=== PATIENT | female | born 1975 | race Caucasian/White ===

== ENCOUNTER 2017-01-31 12:18 | Emergency (ER) | payer MEDICAID, SELFPAY | END 2017-01-31 14:28 | disposition home or self-care (01) | PROVIDERS: Emergency Provider Emergency Medicine; Family Provider Emergency Medicine; Visit Provider Emergency Medicine | DX: A08.4 Viral intestinal infection, unspecified (principal); F17.210 Nicotine dependence, cigarettes, uncomplicated; I10 Essential (primary) hypertension; F32.9 Major depressive disorder, single episode, unspecified; Z79.899 Other long term (current) drug therapy | CPT/HCPCS: 80053; 81001; 82150; 83690; 85025; 87070; 87275; 87276; 87430; 96365; 96375; 99284; J2405 ==

== ENCOUNTER 2017-04-27 19:36 | Emergency (ER) | payer MEDICAID, SELFPAY ==
[2017-04-27 19:40] VITALS: BP 167/80; PULSE 100; RESP 20; TEMP 36.7; O2SAT 96; BMI 51.8
--- NOTE | 2017-04-27 19:53 | CT_ITS ---
CT abdomen pelvis wo con Ordering Physician: Shadia De Santiago MD Patient Age: 41 years: Female HISTORY: ITS.REASON: abdominal pain TECHNIQUE: Helical CT scanning through abdomen pelvis with no oral nor IV contrast utilized. Sagittal coronal and axial reconstructions on CT workstation. COMPARISON :Previous CT abdomen pelvis 12/06/2015 FINDINGS Large patientImag. Large size somewhat degraded due to such. Lung bases clear with nothing definitely acute. Abdomen pelvis: lack of oral and IV contrast decreases sensitivity Liver. Fatty changes. Elongated right lobe measuring 22.5 cm length. Similar to slightly more generous than previous CT Spleen normal size. Granular with calcification. Pancreas unremarkable. Clips gallbladder fossa from previous cholecystectomy. . Left adrenal nodule, and stable. It measures 3.3 cm diameter with. No significant change in size and appearance since studies dating back to 2014. Its low density character instability most compatible with benign nonfunctioning adenoma. It It resided just inferior to the tail the pancreas and just anterior to the top of left kidney. Right adrenal unremarkable. Kidneys. No urinary tract calculi nor obstruction GI tract: No bowel dilatation or obstruction. Moderate stool the right colon and transverse colon with minimal stool descending colon. Appendix is identified and appears normal. Contains gas. It appears unchanged as prior studies. Pelvis Hysterectomy. No adnexal masses. Postsurgical changes pelvis. Urinary bladder unremarkable. No free fluid pelvi. A tiny stable umbilical hernia. Retroperitoneal nor mesenteric nor pelvic adenopathy. Moderate food distended stomach no bowel dilatation or obstruction Osseous structures. No lesions no significant new findings. Degenerative disc space L5/S1. Facet hypertrophy throughout the lower L-spine most evident at L5/L1 L4/5. IMPRESSION: =[ No acute findings abdomen pelvis Regarding right-sided pain: Appendix appears normal. No urinary tract calculi nor obstruction Liver appears mildly enlarged with elongated right lobe measuring up to 22.5 cm length. Perhaps incrementally longer than previous studies. Suggest correlation with LFTs. Diffuse fatty changes. Cholecystectomy. Stable left adrenal nodule measuring up to 3.3 cm. Cm Large patient. Size slightly degrades images but adequate diagnostic study
[2017-04-27 20:05] LABS: Microscopic, Urine URINE MICROSCOPIC (MICROSCOPIC)
[2017-04-27 20:06] LABS: Basophils % 0.4 % (0.1-2.0); Eosinophils # 0.3 K/mm3 (0.0-0.4); Eosinophils % 2.8 % (0.1-12.0); Hematocrit 45.4 % (37.0-47.0); Hemoglobin 14.2 g/dL (12.2-16.2); Lymphocytes # 3.5 K/mm3 (0.7-4.5); Lymphocytes % 32.2 K/mm3 (10-50); Mean Corpuscular HGB Conc 31.4 g/dL (31.8-35.4); Mean Corpuscular Hemoglobin 30.7 pg (27.0-31.2); Mean Corpuscular Volume 97.8 fl (81-99); Mean Platelet Volume 7.5 fl (7.4-10.4); Monocytes # 0.6 K/mm3 (0.1-1.0); Monocytes % 5.5 % (1.7-9.3); Neutrophils # 6.5 K/mm3 (1.8-7.8); Neutrophils % 59.1 % (37.0-80.0); Platelet Count 302 K/mm3 (142-424); Red Blood Count 4.64 M/mm3 (4.20-5.40); Red Cell Distribution Width 13.4 % (11.5-17.5)
[2017-04-27 20:08] LABS: Appearance,Urine CLOUDY (Clear); Bilirubin,Urine Negative (Negative); Blood, Urine Negative (Negative); Color,Urine YELLOW (Yellow); Glucose,Urine (UA) Negative (Negative); Ketones,Urine Negative (Negative); Leukocyte Esterase,Urine Negative (Negative); Nitrate,Urine Negative (Negative); PH,Urine 6.5 (5.0-8.5); Protein,Urine Negative (Negative); Specific Gravity, Urine 1.015 (1.005-1.030); Urobilinogen,Urine 0.2 EU/dl (0.2)
[2017-04-27 20:13] LABS: Amorphous Sediment,Urine 1+ /lpf
[2017-04-27 20:18] LABS: Alanine Aminotransferase 127 U/L (12-78); Albumin/Globulin Ratio 0.6 (1.1-1.8); Alkaline Phosphatase 119 U/L (46-116); Amylase 56 U/L (25-125); Anion Gap 8.1 mEq/L (5-15); Aspartate Amino Transferase 127 U/L (15-37); Bilirubin,Total 0.2 mg/dL (0.2-1.0); Blood Urea Nitrogen 9 mg/dL (7-18); Calcium 8.9 mg/dL (8.5-10.1); Carbon Dioxide 29 mmol/L (21.0-32.0); Chloride 102 mmol/L (98-107); Creatinine Clearance Estimated 76 mL/min (0-300); Creatinine,Serum 0.83 mg/dL (0.55-1.02); Estimated Glomerular Filt Rate 75 ml/min (>60); GFR (African American) 91 ML/MIN (>60); Globulin 4.8 gm/dl (1.3-3.2); Glucose 140 mg/dL (74-106); Lipase 424 u/L (73-393); Potassium 4.1 mmoL/L (3.5-5.1); Sodium 135 mmol/L (136-145); Total Protein,Serum 7.8 gm/dL (6.4-8.2)
--- NOTE | 2017-04-27 20:38 | HMH.EDUROGF ---
ED Disposition Clinical Impression: Abdominal pain Qualifiers: Abdominal location: right lower quadrant Qualified Code(s): R10.31 - Right lower quadrant pain Disposition: Home, Self-Care Condition on Discharge: Good Instructions: DI for Acute Abdomen Additional Instructions: see pcp saturday Referrals: Isis Jacques PA [Primary Care Provider] - - Critical Care Critical Care Time: No Attestation: On 04/27/17, the high probability of a clinically significant, sudden or life threatening deterioration of the following system(s) required my full and direct attention, intervention and personal management. The time I documented below is in addition to time spent performing reported procedures but includes the following listed in this critical care notation. Medical Decision Making - Medical Records Medical records reviewed: Yes: I reviewed the patient's medical records. Vital Signs: 04/27/17 19:40 Temperature 98.1 F Temperature Source Oral Pulse Rate [Right Radial] 100 H Respiratory Rate 20 Blood Pressure [Right Arm] 167/80 Blood Pressure Mean [Right Arm] 109 Blood Pressure Source [Right Arm] Automatic Cuff Blood Pressure Position [Right Arm] Sitting 02 Sat by Pulse Oximetry 96 Oxygen Delivery Method Room Air - Lab Data Lab results reviewed: Yes: I reviewed the patient's lab results. Lab Results 04/27/17 20:00: Urine Color Yellow, Urine Appearance Cloudy, Urine pH 6.5, Ur Specific [place] 1.015, Urine Protein Negative, Urine Glucose (UA) Negative, Urine Ketones Negative, Urine Blood Negative, Urine Nitrate Negative, Urine Bilirubin Negative, Urine Urobilinogen 0.2, Ur Leukocyte Esterase Negative, Ur Squamous Epith Cells 10-20, Amorphous Sediment 1+ 04/27/17 20:00: WBC 11.0 H, RBC 4.64, Hgb 14.2, Hct 45.4, MCV 97.8, MCH 30.7, MCHC 31.4 L, RDW 13.4, Plt Count 302, MPV 7.5, Neut % (Auto) 59.1, Lymph % (Auto) 32.2, Barron % (Auto) 5.5, Eos % (Auto) 2.8, Baso % (Auto) 0.4, Neut # (Auto) 6.5, Lymph # (Auto) 3.5, Barron # (Auto) 0.6, Eos # (Auto) 0.3, Baso # (Auto) 0.0 04/27/17 20:00: Sodium 135 L, Potassium 4.1, Chloride 102, Carbon Dioxide 29, Anion Gap 8.1, BUN 9, Creatinine 0.83, Estimated Creat Clear 76, Estimated GFR 75, Est GFR ( Amer) 91, Glucose 140 H, Calcium 8.9, Total Bilirubin 0.2, AST 127 H, ALT 127 H, Alkaline Phosphatase 119 H, Total Protein 7.8, Albumin 3.0 L, Globulin 4.8 H, Albumin/Globulin Ratio 0.6 L, Amylase 56, Lipase 424 H Result diagrams: 04/27/17 20:00 04/27/17 20:00 Orders (Tests/Meds): ED MEDICATIONS Discontinued Medications Generic Name Dose Route Start Last Admin Trade Name Freq PRN Reason Stop Dose Admin Ketorolac Tromethamine 30 mg 04/27/17 20:34 04/27/17 20:39 Toradol 30mg/Ml Vial IV 04/27/17 20:35 30 mg ONCE ONE Administration Ondansetron HCl 4 mg 04/27/17 20:38 04/27/17 20:39 Zofran 4mg/2ml Vial IV 04/27/17 20:39 4 mg ONCE ONE Administration - CT Data CT Scan: Abdomen, Pelvis Time Received: 20:[address] Reviewed: Yes: I have viewed the radiologist's interpretation Preliminary Findings: Normal/NAD - Red Inquiry Pt receiving controlled substance: No Female Urogenital HPI - General Chief complaint: Abdominal Pain Stated complaint: R side pain Time Seen by Provider: 04/27/17 20:38 Mode of Arrival: Ambulatory Source of Information: Patient, Significant Other Limitations: No Limitations Description of Symptoms (Recalled from ER Triage Doc. by RN): Pt reports RLQ/flank pain that radiates into the back - History of Present Illness HPI Narrative: acute onset of rt flank pain with no fever or rash and no trauma Onset (ago): hour(s) Radiation: R flank Severity: moderate Quality: sharp Duration: intermittent : no - Related Data Home Medications Medication Instructions Recorded Confirmed cholecalciferol (vitamin D3) 50,000 unit PO QWEEK 02/21/17 04/27/17 50,000 unit capsule cyclobenzaprine 10 mg ta
[2017-04-27 21:29] VITALS: BP 150/93; PULSE 77; RESP 20; TEMP 36.9; O2SAT 97
== END 2017-04-27 21:25 | disposition home or self-care (01) ==
PROVIDERS: Emergency Provider Emergency Medicine; Family Provider Physician Assistant; PCP Physician Assistant
DX: R10.31 Right lower quadrant pain (principal); K21.9 Gastro-esophageal reflux disease without esophagitis; I10 Essential (primary) hypertension; F41.8 Other specified anxiety disorders; M51.36 Other intervertebral disc degeneration, lumbar region; Z90.49 Acquired absence of other specified parts of digestive tract
CPT/HCPCS: 74176; 80053; 81001; 82150; 83690; 85025; 96374; 96375; 99283; J0595; J2405

== ENCOUNTER → 2017-04-29 13:40 | Outpatient (REF) | payer MEDICAID, SELFPAY ==
[2017-04-29 18:26] LABS: Basophils % 0.5 % (0.1-2.0); Eosinophils # 0.3 K/mm3 (0.0-0.4); Eosinophils % 3.7 % (0.1-12.0); Hematocrit 47.8 % (37.0-47.0); Hemoglobin 14.9 g/dL (12.2-16.2); Lymphocytes # 2.3 K/mm3 (0.7-4.5); Lymphocytes % 33.5 K/mm3 (10-50); Mean Corpuscular HGB Conc 31.1 g/dL (31.8-35.4); Mean Corpuscular Hemoglobin 30.7 pg (27.0-31.2); Mean Corpuscular Volume 98.8 fl (81-99); Mean Platelet Volume 8.2 fl (7.4-10.4); Monocytes # 0.3 K/mm3 (0.1-1.0); Monocytes % 4.4 % (1.7-9.3); Neutrophils % 57.8 % (37.0-80.0); Platelet Count 301 K/mm3 (142-424); Red Blood Count 4.84 M/mm3 (4.20-5.40); Red Cell Distribution Width 13.5 % (11.5-17.5)
[2017-04-29 19:39] LABS: Alanine Aminotransferase 132 U/L (12-78); Albumin Level 3.2 gm/dL (3.4-5.0); Albumin/Globulin Ratio 0.7 (1.1-1.8); Alkaline Phosphatase 103 U/L (46-116); Amylase 46 U/L (25-125); Anion Gap 14.4 mEq/L (5-15); Aspartate Amino Transferase 114 U/L (15-37); Bilirubin,Total 0.3 mg/dL (0.2-1.0); Blood Urea Nitrogen 9 mg/dL (7-18); Calcium 9.2 mg/dL (8.5-10.1); Carbon Dioxide 27 mmol/L (21.0-32.0); Chloride 102 mmol/L (98-107); Chol/HDL Ratio 4.5 (1-3.5); Cholesterol 186 mg/dL (140-200); Creatinine,Serum 0.83 mg/dL (0.55-1.02); Estimated Glomerular Filt Rate 75 ml/min (>60); GFR (African American) 91 ML/MIN (>60); Globulin 4.4 gm/dl (1.3-3.2); Glucose 135 mg/dL (74-106); HDL Cholesterol 41 mg/dL (29-89); LDL Cholesterol 128 mg/dL (0-130); Lipase 203 u/L (73-393); Potassium 4.4 mmoL/L (3.5-5.1); Sodium 139 mmol/L (136-145); T4 (Thyroxine) 7.1 ug/dl (4.7-13.3); Thyroid Stimulating Hormone 1.18 uIU/ml (0.358-3.740); Total Protein,Serum 7.6 gm/dL (6.4-8.2); Triglycerides 84 mg/dL (30-200); VLDL Cholesterol 17 mg/dL (0-40)
== END ==
LOC: LAB 13:40
PROVIDERS: Visit Provider Physician Assistant
DX: R74.8 Abnormal levels of other serum enzymes (principal)
CPT/HCPCS: 80053; 80061; 82150; 83690; 84436; 84443; 85025

== ENCOUNTER → 2017-12-05 12:07 | Outpatient (CLI) | payer MEDICAID, SELFPAY | PROVIDERS: PCP Nurse Practitioner Family; Visit Provider Nurse Practitioner Family | DX: E11.65 Type 2 diabetes mellitus with hyperglycemia (principal) ==

== ENCOUNTER → 2018-01-30 17:53 | Outpatient (CLI) | payer MEDICAID, SELFPAY ==
[2018-02-01 10:14] LABS: Creatinine, Urine 136.5 mg/dL (Not Estab.); Microalbumin, Urine 3.7 ug/mL (Not Estab.)
== END ==
PROVIDERS: Visit Provider Physician Assistant
DX: E11.9 Type 2 diabetes mellitus without complications (principal)
CPT/HCPCS: 82043; 82570

== ENCOUNTER → 2018-07-21 18:05 | Outpatient (CLI) | payer MEDICAID, SELFPAY | PROVIDERS: Visit Provider Nurse Practitioner Family | DX: R31.9 Hematuria, unspecified (principal) | CPT/HCPCS: 87086 ==

== ENCOUNTER → 2018-07-22 10:04 | Outpatient (CLI) | payer MEDICAID, SELFPAY ==
--- NOTE | 2018-07-22 10:13 | XR_ITS ---
XR KUB HISTORY: ITS.REASON: pain ORDERING PHYSICIAN: Mamie Lozada APRN PATIENT AGE: 42 years COMPARISON: None FINDINGS: The bowel gas pattern is unremarkable. No obvious obstruction.. No abnormal calcifications are evident. No obvious renal or ureteral calculi.. No acute bony anomalies evident. There is minimal lumbar curvature convex left. Surgical clips are present in the pelvic region. IMPRESSION: No acute finding
[2018-07-22 12:43] LABS: Alanine Aminotransferase 133 U/L (12-78); Albumin Level 3.4 gm/dL (3.4-5.0); Albumin/Globulin Ratio 0.8 (1.1-1.8); Alkaline Phosphatase 137 U/L (46-116); Anion Gap 15.2 mEq/L (5-15); Aspartate Amino Transferase 115 U/L (15-37); Bilirubin,Total 0.7 mg/dL (0.2-1.0); Blood Urea Nitrogen 8 mg/dL (7-18); Calcium 9.4 mg/dL (8.5-10.1); Carbon Dioxide 26 mmol/L (21.0-32.0); Chloride 99 mmol/L (98-107); Chol/HDL Ratio 9.7 (1-3.5); Cholesterol 175 mg/dL (140-200); Creatinine,Serum 0.79 mg/dL (0.55-1.02); Estimated Glomerular Filt Rate 79 ml/min (>60); GFR (African American) 96 ML/MIN (>60); Globulin 4.5 gm/dl (1.3-3.2); Glucose 355 mg/dL (74-106); HDL Cholesterol 18 mg/dL (29-89); LDL Cholesterol 96 mg/dL (0-130); Potassium 4.2 mmoL/L (3.5-5.1); Sodium 136 mmol/L (136-145); Total Protein,Serum 7.9 gm/dL (6.4-8.2); Triglycerides 307 mg/dL (30-200); VLDL Cholesterol 61 mg/dL (0-40)
[2018-07-22 21:02] LABS: Hemoglobin A1C 10.7 % (0.0-7.0)
== END ==
PROVIDERS: Visit Provider Nurse Practitioner Family
DX: E11.9 Type 2 diabetes mellitus without complications (principal); M54.9 Dorsalgia, unspecified; R31.29 Other microscopic hematuria; Z79.84 Long term (current) use of oral hypoglycemic drugs
CPT/HCPCS: 36415; 74018; 80053; 80061; 83036

== ENCOUNTER → 2018-08-18 12:27 | Outpatient (CLI) | payer MEDICAID, SELFPAY ==
[2018-08-18 13:17] LABS: Erythrocyte Sedimentation Rate 8 mm/hr (0-20)
[2018-08-18 13:44] LABS: C-Reactive Protein 0.3 mg/L (0.0-0.9); Creatine Kinase 52 U/L (26-192)
== END ==
PROVIDERS: Visit Provider Nurse Practitioner Family
DX: M25.50 Pain in unspecified joint (principal); R25.2 Cramp and spasm
CPT/HCPCS: 36415; 82550; 85651; 86140

== ENCOUNTER → 2018-10-22 16:02 | Outpatient (CLI) | payer MEDICAID, SELFPAY ==
[2018-10-22 16:12] LABS: Basophils # 0.1 K/mm3 (0-0.2); Basophils % 0.6 % (0.1-2.0); Eosinophils % 0.1 % (0.1-12.0); Hematocrit 49.2 % (37.0-47.0); Hemoglobin 15.7 g/dL (12.2-16.2); Lymphocytes # 4.6 K/mm3 (0.7-4.5); Lymphocytes % 37.2 % (10-50); Mean Corpuscular HGB Conc 31.9 g/dL (31.8-35.4); Mean Corpuscular Hemoglobin 30.2 pg (27.0-31.2); Mean Corpuscular Volume 94.8 fl (81-99); Mean Platelet Volume 7.5 fl (7.4-10.4); Monocytes # 0.5 K/mm3 (0.1-1.0); Monocytes % 4.4 % (1.7-9.3); Neutrophils # 7.1 K/mm3 (1.8-7.8); Neutrophils % 57.7 % (37.0-80.0); Platelet Count 358 K/mm3 (142-424); Red Blood Count 5.19 M/mm3 (4.20-5.40); Red Cell Distribution Width 13.5 % (11.5-17.5); White Blood Count 12.2 K/mm3 (4.8-10.8)
[2018-10-22 17:06] LABS: Hemoglobin A1C 10.6 % (0.0-7.0)
[2018-10-22 17:17] LABS: Alanine Aminotransferase 97 U/L (12-78); Albumin Level 3.5 gm/dL (3.4-5.0); Albumin/Globulin Ratio 0.7 (1.1-1.8); Alkaline Phosphatase 123 U/L (46-116); Anion Gap 16.6 mEq/L (5-15); Aspartate Amino Transferase 65 U/L (15-37); Bilirubin,Total 0.5 mg/dL (0.2-1.0); Blood Urea Nitrogen 8 mg/dL (7-18); Calcium 9.5 mg/dL (8.5-10.1); Carbon Dioxide 25 mmol/L (21.0-32.0); Chloride 103 mmol/L (98-107); Chol/HDL Ratio 6.1 (1-3.5); Cholesterol 208 mg/dL (140-200); Creatinine,Serum 0.72 mg/dL (0.55-1.02); Estimated Glomerular Filt Rate 88 ml/min (>60); GFR (African American) 107 ML/MIN (>60); Globulin 4.7 gm/dl (1.3-3.2); Glucose 117 mg/dL (74-106); HDL Cholesterol 34 mg/dL (29-89); LDL Cholesterol 152 mg/dL (0-130); Potassium 3.6 mmoL/L (3.5-5.1); Sodium 141 mmol/L (136-145); T4 (Thyroxine) 9.7 ug/dl (4.7-13.3); Thyroid Stimulating Hormone 1.34 uIU/ml (0.358-3.740); Total Protein,Serum 8.2 gm/dL (6.4-8.2); Triglycerides 112 mg/dL (30-200); VLDL Cholesterol 22 mg/dL (0-40)
[2018-10-24 11:45] LABS: Vitamin D 25 Hydroxy 26.7 ng/mL (30.0-100.0)
== END ==
PROVIDERS: Visit Provider Physician Assistant
DX: E11.9 Type 2 diabetes mellitus without complications (principal); Z79.84 Long term (current) use of oral hypoglycemic drugs; E55.9 Vitamin D deficiency, unspecified
CPT/HCPCS: 80053; 80061; 82652; 83036; 84436; 84443; 85025

== ENCOUNTER → 2019-01-26 15:14 | Outpatient (CLI) | payer MEDICAID, SELFPAY ==
--- NOTE | 2019-01-26 15:54 | XR_ITS ---
PROCEDURE: XR KUB CLINICAL INDICATION: pain COMPARISON: ABDPELW CT abdomen pelvis w con from 12/02/2017 FINDINGS: Gas pattern-The bowel gas pattern is unremarkable. No obvious obstruction. There are vascular calcifications in the pelvis and there are right pelvic calcifications most consistent with phleboliths. No obvious renal or ureteral calculi. Bones-No acute bony anomalies evident. There has been prior cholecystectomy. Postsurgical clips are seen in the pelvis bilaterally. IMPRESSION: No acute findings. Dictated by: Haja Peralta 01/26/2019 16:44 Electronically signed by Haja Peralta in [place] 01/26/2019 16:44
[2019-01-26 19:08] LABS: Amphetamine/Metha Screen,Urine Negative ng/mL (<1000); Barbiturates Screen,Urine Negative ng/mL (<200); Benzodiazepines Screen,Urine Negative ng/mL (<200); Cannabinoid Screen,Urine Positive ng/mL (<50); Cocaine Screen,Urine Negative ng/mL (<300); Methadone Screen,Urine Negative ng/mL (<300); Opiate Screen,Urine Negative ng/mL (<300); Phencyclidine Screen,Urine Negative ng/mL (<25)
== END ==
LOC: LAB.DROPOF 15:15 → RAD 15:46
PROVIDERS: PCP Nurse Practitioner Family; Visit Provider Nurse Practitioner Family
DX: Z79.899 Other long term (current) drug therapy (principal); R10.9 Unspecified abdominal pain
CPT/HCPCS: 74018; 80305

== ENCOUNTER → 2019-02-05 16:40 | Outpatient (CLI) | payer MEDICAID, SELFPAY ==
[2019-02-05 16:55] LABS: Basophils % 0.4 % (0.1-2.0); Eosinophils # 0.2 K/mm3 (0.0-0.4); Eosinophils % 2.2 % (0.1-12.0); Hemoglobin 14.4 g/dL (12.2-16.2); Lymphocytes % 39.5 % (10-50); Mean Corpuscular HGB Conc 31.9 g/dL (31.8-35.4); Mean Corpuscular Hemoglobin 30.7 pg (27.0-31.2); Mean Corpuscular Volume 96.4 fl (81-99); Mean Platelet Volume 7.3 fl (7.4-10.4); Monocytes # 0.3 K/mm3 (0.1-1.0); Monocytes % 3.9 % (1.7-9.3); Platelet Count 270 K/mm3 (142-424); Red Blood Count 4.67 M/mm3 (4.20-5.40); Red Cell Distribution Width 13.1 % (11.5-17.5); White Blood Count 7.5 K/mm3 (4.8-10.8)
[2019-02-05 17:56] LABS: Hemoglobin A1C 6.4 % (0.0-7.0)
[2019-02-05 19:20] LABS: Alanine Aminotransferase 68 U/L (12-78); Albumin Level 3.3 gm/dL (3.4-5.0); Albumin/Globulin Ratio 0.8 (1.1-1.8); Alkaline Phosphatase 103 U/L (46-116); Anion Gap 15.2 mEq/L (5-15); Aspartate Amino Transferase 60 U/L (15-37); Bilirubin,Total 0.3 mg/dL (0.2-1.0); Blood Urea Nitrogen 10 mg/dL (7-18); Calcium 8.8 mg/dL (8.5-10.1); Carbon Dioxide 26 mmol/L (21.0-32.0); Chloride 102 mmol/L (98-107); Chol/HDL Ratio 4.7 (1-3.5); Cholesterol 200 mg/dL (140-200); Creatinine,Serum 0.76 mg/dL (0.55-1.02); Estimated Glomerular Filt Rate 83 ml/min (>60); GFR (African American) 100 ML/MIN (>60); Globulin 4.4 gm/dl (1.3-3.2); Glucose 83 mg/dL (74-106); HDL Cholesterol 43 mg/dL (29-89); LDL Cholesterol 140 mg/dL (0-130); Potassium 4.2 mmoL/L (3.5-5.1); Sodium 139 mmol/L (136-145); Thyroid Stimulating Hormone 0.93 uIU/ml (0.358-3.740); Total Protein,Serum 7.7 gm/dL (6.4-8.2); Triglycerides 86 mg/dL (30-200); VLDL Cholesterol 17 mg/dL (0-40)
[2019-02-07 13:05] LABS: Vitamin D 25 Hydroxy 25.5 ng/mL (30.0-100.0)
== END ==
PROVIDERS: Visit Provider Physician Assistant
DX: E11.9 Type 2 diabetes mellitus without complications (principal); M25.552 Pain in left hip; Z79.84 Long term (current) use of oral hypoglycemic drugs
CPT/HCPCS: 80053; 80061; 82652; 83036; 84436; 84443; 85025

== ENCOUNTER → 2019-04-14 07:52 | Outpatient (CLI) | payer MEDICAID, SELFPAY ==
--- NOTE | 2019-04-14 07:58 | US_ITS ---
PROCEDURE: US ABDOMEN COMPLETE CLINICAL INDICATION: abdominal pain Left-sided abdominal and flank pain COMPARISON: No exams were available for comparison FINDINGS: PANCREAS: Unremarkable. No obvious mass or abnormal fluid collection. No ductal dilatation LIVER: No focal liver lesions demonstrated. Homogeneous echogenicity. No intrahepatic biliary ductal dilatation evident. There is appropriate direction of blood flow within a non dilated portal vein RIGHT KIDNEY: Unremarkable. Normal size and echogenicity. No hydronephrosis LEFT KIDNEY: Unremarkable. Normal size and echogenicity. No hydronephrosis GALLBLADDER: Prior cholecystectomy. The common bile duct normal at 4 mm. AORTA: No evidence of aneurysmal dilatation. SPLEEN: Unremarkable. Normal size and echogenicity ASCITES: None demonstrated. IMPRESSION: 1. Prior cholecystectomy. 2. Otherwise negative abdominal ultrasound Dictated by: Monty Archuleta MD 04/14/2019 18:37 Electronically signed by Monty Archuleta MD in [place] 04/14/2019 18:37
== END ==
PROVIDERS: PCP Physician Assistant; Visit Provider Physician Assistant
DX: R10.32 Left lower quadrant pain (principal)
CPT/HCPCS: 76700

== ENCOUNTER → 2020-07-19 13:54 | Outpatient (CLI) | payer MEDICAID, SELFPAY ==
[2020-07-19 14:10] LABS: Hemoglobin A1C 10.2 % (4.0-6.0)
[2020-07-19 14:12] LABS: Basophils % 0.7 % (0.1-2.0); Eosinophils # 0.3 K/mm3 (0.0-0.4); Eosinophils % 4.3 % (0.1-12.0); Hematocrit 42.1 % (37.0-47.0); Hemoglobin 13.5 g/dL (12.2-16.2); Lymphocytes # 2.5 K/mm3 (0.7-4.5); Lymphocytes % 40.8 % (10-50); Mean Corpuscular HGB Conc 32.1 g/dL (31.8-35.4); Mean Corpuscular Hemoglobin 31.1 pg (27.0-31.2); Mean Corpuscular Volume 96.9 fl (81-99); Mean Platelet Volume 8.4 fl (7.4-10.4); Monocytes # 0.4 K/mm3 (0.1-1.0); Monocytes % 6.2 % (1.7-9.3); Neutrophils # 2.9 K/mm3 (1.8-7.8); Platelet Count 176 K/mm3 (142-424); Red Blood Count 4.34 M/mm3 (4.20-5.40)
[2020-07-19 14:19] LABS: Chloride 103 mmol/L (98-107)
[2020-07-19 14:20] LABS: Potassium 4.2 mmoL/L (3.5-5.1); Sodium 138 mmol/L (136-145)
[2020-07-19 14:22] LABS: Alanine Aminotransferase 40 U/L (12-78); Alkaline Phosphatase 165 U/L (38-126); Aspartate Amino Transferase 65 U/L (14-36); Bilirubin,Total 0.8 mg/dl (0.2-1.3); Blood Urea Nitrogen 6 mg/dl (7-17); Estimated Glomerular Filt Rate 133 ml/min (>60); GFR (African American) 161 ML/MIN (>60)
[2020-07-19 14:23] LABS: Albumin Level 3.5 g/dl (3.5-5.0); Albumin/Globulin Ratio 0.8 (1.1-1.8); Anion Gap 10.2 mEq/L (5-15); Calcium 8.9 mg/dl (8.4-10.2); Carbon Dioxide 29 mmol/L (22.0-30.0); Chol/HDL Ratio 5.6 (1-3.5); Cholesterol 169 mg/dl (140-200); Globulin 4.2 g/dL (1.3-3.2); Glucose 198 mg/dl (74-100); HDL Cholesterol 30 mg/dl (40-60); Total Protein,Serum 7.7 g/dl (6.3-8.2); Triglycerides 121 mg/dl (30-150); VLDL Cholesterol 24 mg/dL (0-40)
[2020-07-19 14:35] LABS: Free T4 (Free Thyroxine) 1.02 ng/dl (0.78-2.19)
[2020-07-19 14:36] LABS: 25-OH Vitamin D, Total 51.3 ng/mL (30-100)
[2020-07-19 14:52] LABS: Direct LDL Cholesterol 112.43 mg/dL (100-129)
[2020-07-19 15:03] LABS: Thyroid Stimulating Hormone 2.04 uIU/mL (0.465-4.68)
== END ==
PROVIDERS: Visit Provider Physician Assistant
DX: E11.65 Type 2 diabetes mellitus with hyperglycemia (principal); F41.9 Anxiety disorder, unspecified; R74.8 Abnormal levels of other serum enzymes; E66.01 Morbid (severe) obesity due to excess calories; Z68.43 Body mass index [BMI] 50.0-59.9, adult; Z79.84 Long term (current) use of oral hypoglycemic drugs
CPT/HCPCS: 80053; 80061; 82043; 82306; 83036; 84439; 84443; 85025

== ENCOUNTER → 2020-07-22 11:06 | Outpatient (CLI) | payer MEDICAID, SELFPAY ==
--- NOTE | 2020-07-22 11:10 | XR_ITS ---
PROCEDURE: XR CHEST 2V CLINICAL HISTORY: dyspnea, smoker COMPARISON: CR CXR CHEST(2 VIEWS-NOT PORTABLE) from 07/13/2015 FINDINGS: The cardiomediastinal silhouette and pulmonary vascularity are within normal limits. Calcified granuloma is present in the right upper lobe. The remaining lungs are clear No acute bony abnormalities. IMPRESSION: No change with no acute finding. Dictated by: Monty Archuleta MD 07/22/2020 12:30 Monty Archuleta MD in [place] 07/22/2020 12:30
--- NOTE | 2020-07-22 11:10 | XR_ITS ---
PROCEDURE: XR KNEE LT 4V CLINICAL INDICATION: bilateral knee pain COMPARISON: CR XR KNEE RT 4V from 07/22/2020 FINDINGS: No fracture or dislocation. No lytic or blastic change. There is normal mineralization. The joint spaces are well-preserved. No significant degenerative/arthritic changes. No erosive changes evident. Other findings:There are small pretibial phleboliths. IMPRESSION: No acute findings. Dictated by: Monty Archuleta MD 07/22/2020 12:28 Monty Archuleta MD in [place] 07/22/2020 12:28
--- NOTE | 2020-07-22 11:10 | XR_ITS ---
PROCEDURE: XR LUMBAR SPINE MIN 4V CLINICAL INDICATION: LBP with BLE radiculopathy COMPARISON: CR LS5 LUMBAR SPINE 5 VIEWS from 01/03/2016 FINDINGS: No fracture or dislocation. No lytic or blastic change. There is normal mineralization. The disc spaces are well preserved. No significant degenerative change. There is minimal lumbar curvature convex left. Unremarkable appearing SI joints. Surgical clips are present in the pelvis centrally and on the right and left. Other findings:None. IMPRESSION: As above, no change with no acute finding. Dictated by: Monty Archuleta MD 07/22/2020 12:33 Monty Archuleta MD in [place] 07/22/2020 12:33
--- NOTE | 2020-07-22 11:10 | XR_ITS ---
PROCEDURE: XR KNEE RT 4V CLINICAL INDICATION: bilateral knee pain COMPARISON: No exams were available for comparison FINDINGS: No fracture or dislocation. No lytic or blastic change. There is normal mineralization. The joint spaces are well-preserved. No significant degenerative/arthritic changes. No erosive changes evident. Other findings:Small phleboliths are present in the proximal calf medially and in the pretibial area IMPRESSION: Negative right knee Dictated by: Monty Archuleta MD 07/22/2020 12:19 Monty Archuleta MD in [place] 07/22/2020 12:19
--- NOTE | 2020-07-22 11:10 | XR_ITS ---
PROCEDURE: XR FOOT WT BEARING RT 3V CLINICAL INDICATION: pain COMPARISON: No exams were available for comparison FINDINGS: There are mild osteoarthritic changes at the 1st metatarsal tarsal joint Mild osteoarthritic changes are present at the tarsal metatarsal junction most prominent at the 1st metatarsal tarsal joint. There is mild pes planus as well as mild osteoarthritic change also at the talonavicular joint. Other findings:None. IMPRESSION: Degenerative changes with pes planus Dictated by: Monty Archuleta MD 07/22/2020 12:18 Monty Archuleta MD in [place] 07/22/2020 12:18
== END ==
PROVIDERS: PCP Nurse Practitioner Family; Visit Provider Nurse Practitioner Family
DX: M54.5 Low back pain (principal); M25.561 Pain in right knee; M25.562 Pain in left knee; R06.00 Dyspnea, unspecified; M79.671 Pain in right foot; Z72.0 Tobacco use
CPT/HCPCS: 71046; 72110; 73564; 73630

== ENCOUNTER 2020-07-29 11:07 | Outpatient (RCR) | payer MEDICAID, SELFPAY ==
--- NOTE | 2020-07-29 11:34 | HMH.PTOPEV ---
PT Outpatient Evaluation Rehab PT Outpatient Evaluation Start: 07/29/20 11:21 Freq: Status: Active Protocol: Document 07/29/20 11:23 MARTÍN (Rec: 07/29/20 11:34 MARTÍN [id number]) Electronically Signed By Fredrick Guajardo, PT 07/29/20 11:23 Outpatient Therapy Subjective History Subjective History Pt reports h/o chronic LBP and mid-back pain for ~20+yrs. Pt reports most recent exacerbation began ~1 month ago, insidious onset. Pt reports mid-and low back pain, w/referred pain into paraspinals, and into Kiet. glut mm down to knee level. Pt reports previous Xrays have revealed DDD in lumbar and thoracic spine. Chief Complaint Pain,Stiff,Paresthesia, Weakness Symptom Type Ache,Sharp,Dull,Stabbing Symptoms Relieved By Rest/Positioning,Prescription Meds Symptoms Aggravated By Standing,Bending/Stooping, Physical Activity,Walking, Lifting Prior Functional Limitations Lifting,Housework,Standing, Walking,Bending/Stooping Current Functional Limitations Lifting,Housework,Standing, Walking,Bending/Stooping Symptom Description Constant but Variable Level of pain today (0-10) 7 Pain scale - at its best (0-10) 7 Pain scale - at its worst (0-10) 9 Lumbopelvic Eval Posture Thoracic Spine Posture Standing Position Neutral Lumbar Spine Posture Standing Position Increased Lordosis Assistive device Assistive Devices None / NA Gait Observation General Gait Pattern Observation Antalgic Gait Palapation tenderness bilateral thoracic spinal tenderness Yes: 3/4 lumbar spinal tenderness Yes: 3/4 paraspinal tenderness Yes: 3/4 buttock tenderness Yes: 3/4 Lumbar/Sacral Palpation Findings Tenderness,Muscle Guarding Lumbar/Sacral Palpation Overall Comment 3/4 Accessory Movement T-spine Vertebrae Accessory Movements Central P/A [place] that Elicit Symptoms T10 bilateral T11 bilateral T12 bilateral L-spine Vertebrae Accessory Movements Central P/A [place] that Elicit Symptoms L2 bilateral L3 bilateral L4 bilateral L5 bilateral Range of Motion Lumbar Spine Active Flexion Range of 0-10
== END 2020-07-29 11:10 | disposition home or self-care (01) ==
LOC: PT 11:07
PROVIDERS: Visit Provider Physician Assistant
DX: M54.5 Low back pain (principal)
CPT/HCPCS: 97163

== ENCOUNTER → 2020-08-02 09:18 | Outpatient (CLI) | payer MEDICAID, SELFPAY ==
--- NOTE | 2020-08-02 09:19 | MM_ITS ---
PROCEDURE: MM DIG SCREENING MAMM BI W/CAD Digital Breast Tomosynthesis Included CLINICAL INDICATION: Breast cancer screening by mammogram COMPARISON: MG DMSB DIG MAMM-SCREEN GONZALEZ W/CAD from 03/07/2016 TECHNIQUE: Standard CC and MLO images and 3D Tomosynthesis was obtained. R2 CAD reviewed. FINDINGS: There are scattered fibroglandular elements which may obscure a lesion on mammography. No new dominant mass. No suspicious type microcalcifications or indirect evidence of malignancy. IMPRESSION: Normal bilateral digital screening mammograms. BI-RAD Category: 1 Negative FOLLOW-UP: 1 YR 1 Year Follow-up (A letter has been sent to the patient regarding results of the study.) Dictated by: Milan Keating MD 08/03/2020 17:32 Milan Keating MD in [place] 08/03/2020 17:32
== END ==
PROVIDERS: PCP Physician Assistant; Visit Provider Physician Assistant
DX: Z12.31 Encounter for screening mammogram for malignant neoplasm of breast (principal)
CPT/HCPCS: 77063; 77067; G0399

== ENCOUNTER → 2020-09-15 07:54 | Outpatient (CLI) | payer MEDICAID, SELFPAY | PROVIDERS: PCP Physician Assistant; Visit Provider Physician Assistant | DX: R06.00 Dyspnea, unspecified (principal); Z72.0 Tobacco use | CPT/HCPCS: 94060; 94726; 94729 ==

== ENCOUNTER 2020-10-05 09:00 | Outpatient (RCR) | payer MEDICAID, SELFPAY ==
--- NOTE | 2020-09-28 11:24 | HMH.PTOPEV ---
PT Outpatient Evaluation Rehab PT Outpatient Evaluation Start: 09/28/20 11:17 Freq: Status: Active Protocol: Document 09/28/20 11:17 MARTÍN (Rec: 09/28/20 11:24 MARTÍN [id number]) Electronically Signed By Fredrick Guajardo, PT 09/28/20 11:17 Outpatient Therapy Subjective History Subjective History Pt reports h/o chronic LBP for ~10+ years. Pt reports current episode causes LBP on bilaterally, with radicular s/ s down bilateral LE's to knee level. Pt reports previous episode of skilled P.T. increased LBP d/t traction. Chief Complaint Pain,Stiff,Paresthesia Symptom Type Ache,Sharp,Dull,Numbness, Tingling Symptoms Relieved By Rest/Positioning,Heat,OTC Meds ,Prescription Meds Symptoms Aggravated By Standing,Bending/Stooping, Physical Activity,Walking, Lifting Prior Functional Limitations Lifting,Housework,Standing, Walking Current Functional Limitations Lifting,Housework,Standing, Walking Symptom Description Constant but Variable Level of pain today (0-10) 4 Pain scale - at its best (0-10) 4 Pain scale - at its worst (0-10) 10 Lumbopelvic Eval Posture Thoracic Spine Posture Standing Position Neutral Lumbar Spine Posture Standing Position Neutral Assistive device Assistive Devices None / NA Gait Observation General Gait Pattern Observation No Deviations/Normal Palapation tenderness bilateral lumbar spinal tenderness Yes: 3/4 paraspinal tenderness Yes: 3/4 buttock tenderness Yes: 3/4 Lumbar/Sacral Palpation Findings Tenderness Accessory Movement L-spine Vertebrae Accessory Movements Central P/A [place] that Elicit Symptoms L2 bilateral L3 bilateral L4 bilateral L5 bilateral Range of Motion Lumbar Spine Active Flexion Range of 0-20 Motion (degrees) Lumbar Spine Active Extension Range of 0-5 Motion (degrees) Left Lumbar Spine Lateral Flexion Active 0-20 Range of Motion (degrees) Right Lumbar Spine Lateral Flexion 0-20 Active Range of Motion (degrees) Lumbar Spine ROM Limitations Pain Manual Muscle Test Bilateral Knee Extension Strength Grade 4 Good Knee Flexion Strength Grade 4 Good Hip Flexion Strength Grade 4- Good- Extensor Hallucis Longus Strength Grade 5 Normal Ankle Dorsiflexion Strength
== END 2020-10-05 10:24 | disposition home or self-care (01) ==
LOC: PT 09:00
PROVIDERS: Visit Provider Physician Assistant
DX: M54.5 Low back pain (principal)
CPT/HCPCS: 97014; 97110; 97163; G0283

== ENCOUNTER → 2020-10-17 11:14 | Outpatient (CLI) | payer MEDICAID, SELFPAY ==
--- NOTE | 2020-10-17 | CA_ITS ---
APPROVED REPORT Exam: Pharmacologic Technologist: Barbara Levine Ht: 5 ft 4 in Wt: 300 lbs BSA: 2.32 m2 HR: 57 bpm BP: 134/69 mmHg Medical History Medications: Omeprazole,,,,, Metoprolol,,,,, Metformin,,,,, Trazadone,,,,, Gabapentin,,,,, Glipizide,,,,, Quetiapine,,,,, Umeclidinium,,,,, Ergocalciferol,,,,, Sitagliptin,,,,, TriaMcinalone,,,,, Sertaline,,,,, Stress Test Details Test: LEXISCAN HR Resting HR: 55 bpm Max Heart Rate (APMHR): 175.713599 bpm Max HR Achieved: 96 bpm Target HR (85% APMHR): 148.328252 bpm % of APMHR: 54.86 Recovery HR: 70 bpm BP Resting BP: 134.0/69.0 mmHg Max BP: 134.0/69.0 mmHg Recovery BP: 116.0/69.0 mmHg ECG Resting ECG: Normal sinus rhythm Clinical Reason for Termination: Completed Protocol Exercise duration: 04:06 min Highest Stage Achieved: Exercise capacity: 1.0 METs Stress ECG Conclusion Non-diagnostic stress test. Patient received the infusion per protocol without chest pain, ST segment changes or arrhythmias. See the nuclear report for further information. Test Summary RECOVERY 02:00 . . 81 . . . . Stage 1 01:00 . . 95 . . . . Stage 2 01:00 . . 89 . . . . Stage 3 01:00 . . 89 . 133/ 75 . . Stage 4 01:00 . . 86 . 130/ 72 . . Stage 4 01:06 . . 89 . 130/ 72 . Stop exercise at 04:06 RECOVERY 01:00 . . 74 . . . . RECOVERY 02:00 . . 81 . . . . RECOVERY 02:19 . . 82 . 116/ 69 . . Electronically signed by : Adria Berry MD 10/17/2020 19:18:23
--- NOTE | 2020-10-17 11:14 | NM_ITS ---
APPROVED REPORT Exam: Nuclear Stress Test Indication: Chest pain, SOB, HTN, DM, High cholesterol, Tobacco use, Family history Patient Location: Outpatient Stress Tech: Barbara Levine MT Tech:Pastora Thomas, ARRT, RT (R)(N) Ht: 5 ft 4 in Wt: 300 lbs Bra Size: 44DD HR: 57 bpm BP: 134/69 mmHg BSA: 2.32 m2 BMI: 51.4 History: Chest pain, SOB, HTN, DM, High cholesterol, Tobacco use, Family history Procedure: Patient received a 0.4 mg of intravenous Lexiscan, resting heart rate 57 bpm, resting blood pressure 134/69 mmHg, with Lexiscan maximum heart rate achived was 90 bpm which is Less than 85 % of the maximum predicted heart rate and blood pressure was 133/75 mmHg. With Lexiscan, patient denied any complaint of chest pain. Electrocardiogram Resting electrocardiogram showed sinus rhythm, with Lexiscan there is less than 1.[address] segment depression noted from the baseline EKG. The EKG portion of the Lexiscan is nondiagnostic. Cardiac Stress and Resting SPECT Images: Cardiac Stress and Resting SPECT images were obtained using technetium 99m Myoview 29.2 mCi stress and 10.74 mCi at rest. Gated SPECT for analysis of segmental wall motion and calculation of the ejection fraction also done, prone images were also obtained. Cardiac stress and resting SPECT images show uniform myocardial activity without segmental perfusion abnormality, computer derived ejection fraction is 55% with no regional wall motion abnormality, right ventricle is normal size and contractility. Conclusion: 1. The EKG portion of the Lexiscan is nondiagnostic. 2. No scintigraphic evidence of reversible ischemia seen, computer derived ejection fraction is 55% with no regional wall motion abnormality, right ventricle is normal size and contractility. 3. Normal Lexiscan Myoview study. Electronically signed by : Adria Berry MD 10/18/2020 07:34:17
--- NOTE | 2020-10-17 13:27 | HMH.ITSHM ---
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 []ANORO ALBUTEROL SERAQUIL TRAZODONE BUSPIRONE ZOLOFT ASA METFORMIN GLIPIZIDE INVOKONA JANUVIA GABAPENTIN METOPROLOL LISINOPRIL VITAMINS OMEPRAZOLE ATORVASTATIN
== END ==
PROVIDERS: PCP Physician Assistant; Visit Provider Urology
DX: R06.00 Dyspnea, unspecified (principal); R07.9 Chest pain, unspecified; Z72.0 Tobacco use
CPT/HCPCS: 78452; 93017; A9502; J2785

== ENCOUNTER 2021-04-29 11:22 | Emergency (ER) | payer MEDICAID, SELFPAY ==
[2021-04-29 11:23] VITALS: BP 138/88; PULSE 97; RESP 16; TEMP 36.8; O2SAT 97; BMI 51.5
--- NOTE | 2021-04-29 11:30 | HMH.EDGENADL ---
ED Disposition Clinical Impression: Gastroenteritis Disposition: Home, Self-Care Condition on Discharge: Good Instructions: DI for Viral Gastroenteritis -- Adult Additional Instructions: Zofran as needed for nausea and vomiting. Collect a diarrhea sample using the provided supplies and return it along with the order form to ER registration at [facility] for testing. Obtain the results of this test from your primary care provider the next day. Rest and drink plenty of fluids. Tylenol for pain or fever. Follow-up with primary care provider within the next 2 to 3 days. Additional instructions for VOMITING/DIARRHEA: See your physician as soon as possible for further evaluation. Return immediately if severe abdominal pain, uncontrollable vomiting, shortness of breath, fever, vomiting of blood or abdominal distention. Prescriptions: Ondansetron [Zofran 4mg ODT] 4 mg PO TIDP PRN #10 tab PRN Reason: Nausea And Vomiting Transmission Status: Pending to [facility] Referrals: Isis Jacques PA [Primary Care Provider] - - Critical Care Critical Care Time: No Attestation: On , the high probability of a clinically significant, sudden or life threatening deterioration of the following system(s) required my full and direct attention, intervention and personal management. The time I documented below is in addition to time spent performing reported procedures but includes the following listed in this critical care notation. Medical Decision Making - Red Inquiry Pt receiving controlled substance: No Vital Signs: 04/29/21 11:23 Temperature 98.2 F Temperature Source Oral Pulse Rate [Radial] 97 H Respiratory Rate 16 Blood Pressure [Right Arm] 138/88 Blood Pressure Mean [Right Arm] 104 Blood Pressure Position [Right Arm] Sitting 02 Sat by Pulse Oximetry 97 Oxygen Delivery Method Room Air - Lab Data Lab Results 04/29/21 11:45: WBC 4.6 L, RBC 4.87, Hgb 15.1, Hct 46.4, MCV 95.4, MCH 31.1, MCHC 32.6, RDW 15.2, Plt Count 167, MPV 8.9, Neut % (Auto) 64.9, Lymph % (Auto) 25.8, O'Brien % (Auto) 6.9, Eos % (Auto) 0.5, Baso % (Auto) 2.0, Neut # (Auto) 3.0, Lymph # (Auto) 1.2, O'Brien # (Auto) 0.3, Eos # (Auto) 0.0, Baso # (Auto) 0.1 04/29/21 11:45: Sodium 133 L, Potassium 3.9, Chloride 102, Carbon Dioxide 22, Anion Gap 12.9, BUN 11, Creatinine 0.70, Estimated Creat Clear 87, Estimated GFR 90, Est GFR ( Amer) 109, Glucose 123 H, Calcium 8.7, Total Bilirubin 0.7, AST 126 H, ALT 86 H, Alkaline Phosphatase 116, Total Protein 8.4 H, Albumin 4.0, Globulin 4.4 H, Albumin/Globulin Ratio 0.9 L, Lipase 167 Result diagrams: 04/29/21 11:45 04/29/21 11:45 Orders (Tests/Meds): ED MEDICATIONS Discontinued Medications Generic Name Dose Route Start Last Admin Trade Name Freq PRN Reason Stop Dose Admin Sodium Chloride 1,000 mls @ 999 mls/hr 04/29/21 11:45 04/29/21 11:46 Sod Chlor 0.9% 1000ml Bag IV 04/29/21 12:45 999 mls/hr .Q1H1M KESHIA Administration Iopamidol 75 ml 04/29/21 12:15 04/29/21 12:16 Iopamidol-370 (76%);100ml Bottle IV 04/29/21 12:16 75 ml ONCE ONE Administration Ondansetron HCl 4 mg 04/29/21 11:35 04/29/21 11:46 Ondansetron 4mg/2ml Vial IV 04/29/21 11:36 4 mg ONCE ONE Administration Sodium Chloride 10 ml 04/29/21 12:15 04/29/21 12:16 Sodium Chloride 0.9% 10ml Syr (Rad Only) IV 04/29/21 12:16 10 ml ONCE ONE Administration ORDERS Category Date Time Status Diarrhea 6-11 Panel, Cdiff PCR Stat Lab 04/29/21 11:35 Ordered Urinalysis and Microscopic Stat Lab 04/29/21 11:34 Ordered - CT Data CT Scan: Abdomen, Pelvis Time Received: 13:[address] Reviewed: Yes: I have viewed the radiologist's interpretation Findings Narrative: PROCEDURE INFORMATION: Exam: CT Abdomen And Pelvis With Contrast Exam date and time: 04/29/2021 11:35 AM Age: 45 years old Clinical indication: Abdominal pain; Generalized; Additional info: Pain// TECHNIQUE:
--- NOTE | 2021-04-29 11:35 | CT_ITS ---
PROCEDURE INFORMATION: Exam: CT Abdomen And Pelvis With Contrast Exam date and time: 04/29/2021 11:35 AM Age: 45 years old Clinical indication: Abdominal pain; Generalized; Additional info: Pain// TECHNIQUE: Imaging protocol: Computed tomography of the abdomen and pelvis with contrast. Radiation optimization: All CT scans at this facility use at least one of these dose optimization techniques: automated exposure control; mA and/or kV adjustment per patient size (includes targeted exams where dose is matched to clinical indication); or iterative reconstruction. Contrast material: ISOVUE; Contrast volume: 75 ml; Contrast route: IV; COMPARISON: ABDPELW CT abdomen pelvis w con 12/02/2017 1:24 PM FINDINGS: Liver: Mildly nodular surface contour of the liver. Gallbladder and bile ducts: Cholecystectomy. Pancreas: Normal. No ductal dilation. Spleen: Calcified splenic granulomas. 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 This again may reflect a myelolipoma versus adenoma versus collision tumor. Kidneys and ureters: Normal. No hydronephrosis. Stomach and bowel: Unremarkable. No obstruction. No mucosal thickening. Appendix: No evidence of appendicitis. Intraperitoneal space: Unremarkable. No free air. No significant fluid collection. Vasculature: Mild burden of atherosclerotic plaque in the abdominal aorta and branch vessels. No aneurysm. Lymph nodes: Unremarkable. No enlarged lymph nodes. Urinary bladder: Unremarkable as visualized. Reproductive: Hysterectomy. Bones/joints: Unremarkable. No acute fracture. Soft tissues: Unremarkable. IMPRESSION: 1. No acute findings in the abdomen or pelvis. 2. A mixed density left adrenal mass is minimally changed in size from 2018.
[2021-04-29 11:56] LABS: Chloride 102 mmol/L (98-107); Sodium 133 mmol/L (136-145)
[2021-04-29 11:57] LABS: Potassium 3.9 mmoL/L (3.5-5.1)
[2021-04-29 11:59] LABS: Alanine Aminotransferase 86 U/L (12-78); Albumin/Globulin Ratio 0.9 (1.1-1.8); Alkaline Phosphatase 116 U/L (38-126); Anion Gap 12.9 mEq/L (5-15); Aspartate Amino Transferase 126 U/L (14-36); Bilirubin,Total 0.7 mg/dl (0.2-1.3); Blood Urea Nitrogen 11 mg/dl (7-17); Calcium 8.7 mg/dl (8.4-10.2); Carbon Dioxide 22 mmol/L (22.0-30.0); Creatinine Clearance Estimated 87 mL/min (50-200); Estimated Glomerular Filt Rate 90 ml/min (>60); GFR (African American) 109 ML/MIN (>60); Globulin 4.4 g/dL (1.3-3.2); Glucose 123 mg/dl (74-100); Lipase 167 U/L (23-300); Total Protein,Serum 8.4 g/dl (6.3-8.2)
--- NOTE | 2021-04-29 12:08 | PC.NURSE ---
pt to CT scan
[2021-04-29 12:13] LABS: Basophils # 0.1 K/mm3 (0-0.2); Eosinophils % 0.5 % (0.1-12.0); Hematocrit 46.4 % (37.0-47.0); Hemoglobin 15.1 g/dL (12.2-16.2); Lymphocytes # 1.2 K/mm3 (0.7-4.5); Lymphocytes % 25.8 % (10-50); Mean Corpuscular HGB Conc 32.6 g/dL (31.8-35.4); Mean Corpuscular Hemoglobin 31.1 pg (27.0-31.2); Mean Corpuscular Volume 95.4 fl (81-99); Mean Platelet Volume 8.9 fl (7.4-10.4); Monocytes # 0.3 K/mm3 (0.1-1.0); Monocytes % 6.9 % (1.7-9.3); Neutrophils % 64.9 % (37.0-80.0); Platelet Count 167 K/mm3 (142-424); Red Blood Count 4.87 M/mm3 (4.20-5.40); Red Cell Distribution Width 15.2 % (11.5-17.5); White Blood Count 4.6 K/mm3 (4.8-10.8)
--- NOTE | 2021-04-29 12:14 | PC.NURSE ---
per doctor of radiology, patient tried to use the bathroom and provide a stool and urine specimen, but was unsuccessful. Stated that she would try again later. Pt on to CT at this time.
--- NOTE | 2021-04-29 12:18 | PC.NURSE ---
pt back from CT scan. Hooked back up to vital signs.
[2021-04-29 13:22] VITALS: BP 121/74; PULSE 78; RESP 16; TEMP 36.6; O2SAT 98
== END 2021-04-29 13:24 | disposition home or self-care (01) ==
PROVIDERS: Emergency Provider Emergency Medicine; PCP Physician Assistant
DX: K52.9 Noninfective gastroenteritis and colitis, unspecified (principal); E27.9 Disorder of adrenal gland, unspecified; I10 Essential (primary) hypertension; E78.5 Hyperlipidemia, unspecified; E11.9 Type 2 diabetes mellitus without complications; K21.9 Gastro-esophageal reflux disease without esophagitis; M54.16 Radiculopathy, lumbar region; G43.909 Migraine, unspecified, not intractable, without status migrainosus; F32.A Depression, unspecified; F41.9 Anxiety disorder, unspecified; F17.210 Nicotine dependence, cigarettes, uncomplicated; Z79.51 Long term (current) use of inhaled steroids; Z79.82 Long term (current) use of aspirin; Z79.84 Long term (current) use of oral hypoglycemic drugs; Z79.899 Other long term (current) drug therapy; Z82.49 Family history of ischemic heart disease and other diseases of the circulatory system; Z80.9 Family history of malignant neoplasm, unspecified; Z83.3 Family history of diabetes mellitus
CPT/HCPCS: 74177; 80053; 83690; 85025; 96361; 96365; 96374; 96375; 99284; J2405; Q9967

== ENCOUNTER → 2021-05-11 13:11 | Outpatient (CLI) | payer MEDICAID, SELFPAY ==
[2021-05-11 18:03] LABS: Basophils # 0.1 K/mm3 (0-0.2); Basophils % 1.1 % (0.1-2.0); Eosinophils # 0.1 K/mm3 (0.0-0.4); Eosinophils % 2.1 % (0.1-12.0); Hematocrit 44.2 % (37.0-47.0); Hemoglobin 13.7 g/dL (12.2-16.2); Lymphocytes % 43.2 % (10-50); Mean Corpuscular Hemoglobin 30.6 pg (27.0-31.2); Mean Corpuscular Volume 98.9 fl (81-99); Mean Platelet Volume 8.8 fl (7.4-10.4); Monocytes # 0.4 K/mm3 (0.1-1.0); Monocytes % 5.7 % (1.7-9.3); Neutrophils # 3.3 K/mm3 (1.8-7.8); Platelet Count 197 K/mm3 (142-424); Red Blood Count 4.47 M/mm3 (4.20-5.40); Red Cell Distribution Width 15.3 % (11.5-17.5); White Blood Count 6.9 K/mm3 (4.8-10.8)
[2021-05-11 19:36] LABS: Alanine Aminotransferase 39 U/L (12-78); Albumin Level 3.2 g/dl (3.5-5.0); Albumin/Globulin Ratio 0.9 (1.1-1.8); Alkaline Phosphatase 118 U/L (38-126); Anion Gap 9.2 mEq/L (5-15); Aspartate Amino Transferase 56 U/L (14-36); Bilirubin,Total 0.5 mg/dl (0.2-1.3); Blood Urea Nitrogen 9 mg/dl (7-17); Calcium 8.9 mg/dl (8.4-10.2); Carbon Dioxide 25 mmol/L (22.0-30.0); Chloride 108 mmol/L (98-107); Chol/HDL Ratio 3.3 (1-3.5); Cholesterol 108 mg/dl (140-200); Estimated Glomerular Filt Rate 108 ml/min (>60); GFR (African American) 130 ML/MIN (>60); Globulin 3.7 g/dL (1.3-3.2); Glucose 62 mg/dl (74-100); HDL Cholesterol 33 mg/dl (40-60); Potassium 4.2 mmoL/L (3.5-5.1); Sodium 138 mmol/L (136-145); Total Protein,Serum 6.9 g/dl (6.3-8.2); Triglycerides 94 mg/dl (30-150); VLDL Cholesterol 19 mg/dL (0-40)
[2021-05-11 19:47] LABS: Direct LDL Cholesterol 56.53 mg/dL (100-129)
[2021-05-11 21:09] LABS: Thyroid Stimulating Hormone 1.83 uIU/mL (0.465-4.68)
[2021-05-12 03:53] LABS: 25-OH Vitamin D, Total 45.5 ng/mL (30-100)
[2021-05-13 12:13] LABS: C-Peptide 7.2 ng/mL (1.1-4.4)
== END ==
PROVIDERS: Visit Provider Physician Assistant
DX: E11.40 Type 2 diabetes mellitus with diabetic neuropathy, unspecified (principal); R53.83 Other fatigue; E66.01 Morbid (severe) obesity due to excess calories; Z68.43 Body mass index [BMI] 50.0-59.9, adult; Z79.84 Long term (current) use of oral hypoglycemic drugs
CPT/HCPCS: 80053; 80061; 82043; 82306; 83036; 84443; 84681; 85025

== ENCOUNTER 2021-08-23 10:44 | Emergency (ER) | payer MEDICAID, SELFPAY ==
--- NOTE | 2021-08-23 10:45 | ECG_ITS ---
APPROVED REPORT Exam: Resting ECG HR:63 bpm ECG Measurements Heart Rate 63 AXES WV 173 P 34 QRSd 96 QRS 35 QT 372 T 17 QTc 378 Conclusion SINUS RHYTHM NORMAL ECG UNCONFIRMED REPORT Electronically signed by : Jonathon Sterling MD 08/24/2021 17:42:10
--- NOTE | 2021-08-23 10:50 | PC.NURSE ---
IV established and blood collected by ems in route to ED
[2021-08-23 10:52] VITALS: BP 149/83; PULSE 64; RESP 16; TEMP 36.8; O2SAT 97; BMI 51.5
--- NOTE | 2021-08-23 10:59 | PC.NURSE ---
family at the bedside
[2021-08-23 11:02] VITALS: BP 142/76; PULSE 73; RESP 14; O2SAT 96
[2021-08-23 11:04] LABS: Basophils # 0.1 K/mm3 (0-0.2); Basophils % 2.3 % (0.1-2.0); Eosinophils # 0.2 K/mm3 (0.0-0.4); Eosinophils % 3.1 % (0.1-12.0); Hematocrit 48.9 % (37.0-47.0); Hemoglobin 14.6 g/dL (12.2-16.2); Lymphocytes # 1.8 K/mm3 (0.7-4.5); Mean Corpuscular HGB Conc 29.9 g/dL (31.8-35.4); Mean Corpuscular Hemoglobin 29.8 pg (27.0-31.2); Mean Corpuscular Volume 99.7 fl (81-99); Mean Platelet Volume 7.8 fl (7.4-10.4); Monocytes # 0.3 K/mm3 (0.1-1.0); Monocytes % 5.5 % (1.7-9.3); Neutrophils # 2.9 K/mm3 (1.8-7.8); Platelet Count 196 K/mm3 (142-424); Red Cell Distribution Width 14.6 % (11.5-17.5); White Blood Count 5.2 K/mm3 (4.8-10.8)
--- NOTE | 2021-08-23 11:04 | HMH.EDGENADL ---
ED Disposition Clinical Impression: Wooziness, Essential hypertension Disposition: Home, Self-Care Condition on Discharge: Good Instructions: DI for High Blood Pressure Additional Instructions: Take your blood pressure 1-2 times a day and record. Bring your blood pressure readings to your doctor at your next visit. Referrals: Isis Jacques PA [Primary Care Provider] - - Critical Care Critical Care Time: No Attestation: On 08/23/21, the high probability of a clinically significant, sudden or life threatening deterioration of the following system(s) required my full and direct attention, intervention and personal management. The time I documented below is in addition to time spent performing reported procedures but includes the following listed in this critical care notation. Medical Decision Making - Red Inquiry Pt receiving controlled substance: No Vital Signs: 08/23/21 10:52 08/23/21 11:02 08/23/21 11:30 Temperature 98.2 F Temperature Source Oral Pulse Rate 73 68 Pulse Rate [Left Radial] 64 Respiratory Rate 16 14 16 Blood Pressure 142/76 H 96/75 L Blood Pressure [Right Arm] 149/83 H Blood Pressure Mean 98 82 Blood Pressure Mean [Right Arm] 105 02 Sat by Pulse Oximetry 97 96 95 Oxygen Delivery Method Room Air Room Air Room Air 08/23/21 11:42 08/23/21 12:29 Temperature Temperature Source Pulse Rate 64 74 Pulse Rate [Left Radial] Respiratory Rate 16 Blood Pressure 164/90 H 147/74 H Blood Pressure [Right Arm] Blood Pressure Mean 103 98 Blood Pressure Mean [Right Arm] 02 Sat by Pulse Oximetry 97 96 Oxygen Delivery Method Room Air Room Air - Lab Data Lab Results 08/23/21 10:46: WBC 5.2, RBC 4.90, Hgb 14.6, Hct 48.9 H, MCV 99.7 H, MCH 29.8, MCHC 29.9 L, RDW 14.6, Plt Count 196, MPV 7.8, Neut % (Auto) 55.0, Lymph % (Auto) 34.0, Esmeralda % (Auto) 5.5, Eos % (Auto) 3.1, Baso % (Auto) 2.3 H, Neut # (Auto) 2.9, Lymph # (Auto) 1.8, Esmeralda # (Auto) 0.3, Eos # (Auto) 0.2, Baso # (Auto) 0.1 08/23/21 10:46: Sodium 140, Potassium 4.4, Chloride 103, Carbon Dioxide 29, Anion Gap 12.4, BUN 8, Creatinine 0.70, Estimated Creat Clear 87, Estimated GFR 90, Est GFR ( Amer) 109, Glucose 141 H, Calcium 10.0, Total Bilirubin 0.4, AST 78 H, ALT 52, Alkaline Phosphatase 144 H, Troponin I < 0.01, Total Protein 8.1, Albumin 3.8, Globulin 4.3 H, Albumin/Globulin Ratio 0.9 L 08/23/21 11:27: Urine Color Yellow, Urine Appearance Clear, Urine pH 6.0, Ur Specific [place] 1.010, Urine Protein Negative, Urine Glucose (UA) 3+, Urine Ketones Negative, Urine Blood Negative, Urine Nitrate Negative, Urine Bilirubin Negative, Urine Urobilinogen 0.2, Ur Leukocyte Esterase Negative, Urine RBC Occasional, Urine WBC 3-5, Ur Squamous Epith Cells 5-10, Urine Bacteria Trace, Urine Yeast 1+ Result diagrams: 08/23/21 10:46 08/23/21 10:46 Orders (Tests/Meds): ORDERS Category Date Time Status Troponin I Q3H Lab 08/23/21 14:00 Ordered Troponin I Q3H Lab 08/23/21 17:00 Ordered - ECG Data Tracing #1 EKG interpreted by Janes Jones MD: Rhythm: sinus Rate: 63 [place]: normal Ectopy: none Conduction: normal ST Segment Changes: none T Wave Changes: none Q Waves: none No evidence of acute ischemia or injury Normal electrocardiogram General Adult HPI - General Chief complaint: Dizziness Stated complaint: dizziness Time Seen by Provider: 08/23/21 11:04 Mode of Arrival: EMS Limitations: No Limitations Description of Symptoms (Recalled from ER Triage Doc. by RN): pt to ed per ems c/o dizziness. pt states she woke up this morning feeling dizzy and foggy. pt states she checked her bp and it was high, so she took her medications but reports she didn't feel any different. pt denies any pain. pt states she has had minimal blurry vision but no headache. pt states she has felt anxious since she woke up. - History of Present Illness HPI narrative: States I guess I had a bout of high blood p
--- NOTE | 2021-08-23 11:08 | PC.NURSE ---
at the bedside
--- NOTE | 2021-08-23 11:08 | PC.NURSE ---
JAYA THOMAS at
[2021-08-23 11:10] LABS: Alanine Aminotransferase 52 U/L (12-78); Albumin Level 3.8 g/dl (3.5-5.0); Albumin/Globulin Ratio 0.9 (1.1-1.8); Alkaline Phosphatase 144 U/L (38-126); Anion Gap 12.4 mEq/L (5-15); Aspartate Amino Transferase 78 U/L (14-36); Bilirubin,Total 0.4 mg/dl (0.2-1.3); Blood Urea Nitrogen 8 mg/dl (7-17); Carbon Dioxide 29 mmol/L (22.0-30.0); Chloride 103 mmol/L (98-107); Creatinine Clearance Estimated 87 mL/min (50-200); Estimated Glomerular Filt Rate 90 ml/min (>60); GFR (African American) 109 ML/MIN (>60); Globulin 4.3 g/dL (1.3-3.2); Glucose 141 mg/dl (74-100); Potassium 4.4 mmoL/L (3.5-5.1); Sodium 140 mmol/L (136-145); Total Protein,Serum 8.1 g/dl (6.3-8.2)
[2021-08-23 11:23] LABS: Troponin I < 0.01 ng/ml (0.00-0.034)
--- NOTE | 2021-08-23 11:26 | PC.NURSE ---
Pt ambulated to bathroom. Attempting to provide a urine sample at this time.
[2021-08-23 11:30] VITALS: BP 96/75; PULSE 68; RESP 16; O2SAT 95
[2021-08-23 11:33] LABS: Microscopic, Urine URINE MICROSCOPIC (MICROSCOPIC)
[2021-08-23 11:35] LABS: Appearance,Urine CLEAR (Clear); Bilirubin,Urine Negative (Negative); Blood, Urine Negative (Negative); Color,Urine YELLOW (Yellow); Glucose,Urine (UA) 3+ (Negative); Ketones,Urine Negative (Negative); Leukocyte Esterase,Urine Negative (Negative); Nitrate,Urine Negative (Negative); Protein,Urine Negative (Negative); Urobilinogen,Urine 0.2 EU/dl (0.2)
--- NOTE | 2021-08-23 11:36 | PC.NURSE ---
checked on pt at this time, pt sitting up in bed, family at BS. Pt states no needs at this time. Will continue to monitor
[2021-08-23 11:42] VITALS: BP 164/90; PULSE 64; O2SAT 97
[2021-08-23 11:56] LABS: RBC,Urine Occasional #/hpf (0-3)
[2021-08-23 11:57] LABS: Bacteria,Urine Trace /lpf
[2021-08-23 11:58] LABS: Yeast,Urine 1+ /lpf
--- NOTE | 2021-08-23 12:09 | PC.NURSE ---
ER MD at speaking with patient regarding update on POC
[2021-08-23 12:29] VITALS: BP 147/74; PULSE 74; RESP 16; O2SAT 96
[2021-08-23 13:21] VITALS: BP 119/84; PULSE 74; RESP 17; TEMP 36.8; O2SAT 97
== END 2021-08-23 13:23 | disposition home or self-care (01) ==
PROVIDERS: Emergency Provider Emergency Medicine; PCP Physician Assistant
DX: R42 Dizziness and giddiness (principal); I10 Essential (primary) hypertension
CPT/HCPCS: 80053; 81001; 84484; 85025; 93005; 99283

== ENCOUNTER → 2021-12-20 14:34 | Outpatient (CLI) | payer MEDICAID, SELFPAY ==
[2021-12-20 18:30] LABS: Basophils # 0.1 K/mm3 (0-0.2); Eosinophils # 0.3 K/mm3 (0.0-0.4); Eosinophils % 3.6 % (0.1-12.0); Hematocrit 45.6 % (37.0-47.0); Hemoglobin 14.4 g/dL (12.2-16.2); Lymphocytes # 2.7 K/mm3 (0.7-4.5); Lymphocytes % 37.8 % (10-50); Mean Corpuscular HGB Conc 31.5 g/dL (31.8-35.4); Mean Corpuscular Hemoglobin 30.8 pg (27.0-31.2); Mean Corpuscular Volume 97.8 fl (81-99); Mean Platelet Volume 8.4 fl (7.4-10.4); Monocytes # 0.4 K/mm3 (0.1-1.0); Monocytes % 5.7 % (1.7-9.3); Neutrophils # 3.7 K/mm3 (1.8-7.8); Neutrophils % 51.9 % (37.0-80.0); Platelet Count 199 K/mm3 (142-424); Red Blood Count 4.66 M/mm3 (4.20-5.40); Red Cell Distribution Width 14.6 % (11.5-17.5); White Blood Count 7.1 K/mm3 (4.8-10.8)
[2021-12-20 18:31] LABS: Alanine Aminotransferase 54 U/L (12-78); Albumin Level 3.7 g/dl (3.5-5.0); Albumin/Globulin Ratio 0.9 (1.1-1.8); Alkaline Phosphatase 156 U/L (38-126); Anion Gap 14.6 mEq/L (5-15); Aspartate Amino Transferase 73 U/L (14-36); Bilirubin,Total 0.5 mg/dl (0.2-1.3); Blood Urea Nitrogen 9 mg/dl (7-17); Carbon Dioxide 29 mmol/L (22.0-30.0); Chloride 101 mmol/L (98-107); Chol/HDL Ratio 3.9 (1-3.5); Cholesterol 159 mg/dl (140-200); Estimated Glomerular Filt Rate 90 ml/min (>60); GFR (African American) 109 ML/MIN (>60); Globulin 3.9 g/dL (1.3-3.2); Glucose 76 mg/dl (74-100); HDL Cholesterol 41 mg/dl (40-60); Potassium 4.6 mmoL/L (3.5-5.1); Sodium 140 mmol/L (136-145); Total Protein,Serum 7.6 g/dl (6.3-8.2); Triglycerides 91 mg/dl (30-150); VLDL Cholesterol 18 mg/dL (0-40)
[2021-12-20 18:40] LABS: Creatinine,Urine Random 87 mg/dL (Not Estab.); Microalbumin < 6.000 mg/L (0-16.7)
[2021-12-20 18:42] LABS: Direct LDL Cholesterol 92.82 mg/dL (100-129)
[2021-12-20 18:47] LABS: 25-OH Vitamin D, Total 62.8 ng/mL (30-100)
[2021-12-20 19:01] LABS: Thyroid Stimulating Hormone 0.93 uIU/mL (0.465-4.68)
[2021-12-20 19:35] LABS: Hemoglobin A1C 5.8 % (4.0-6.0)
== END ==
PROVIDERS: PCP Physician Assistant; Visit Provider Physician Assistant
DX: E11.9 Type 2 diabetes mellitus without complications (principal); R53.83 Other fatigue; Z79.84 Long term (current) use of oral hypoglycemic drugs
CPT/HCPCS: 80053; 80061; 82043; 82306; 82570; 83036; 84443; 85025

== ENCOUNTER 2022-02-10 21:15 | Emergency (ER) | payer MEDICAID, SELFPAY ==
[2022-02-10 21:20] VITALS: BP 170/108; PULSE 97; RESP 16; TEMP 36.8; O2SAT 99; BMI 54.6
--- NOTE | 2022-02-10 21:22 | HMH.EDGENADL ---
Discharge Plan Disposition Patient Disposition: Home, Self-Care Condition: Good Chief Complaint: Anxiety Prescriptions Prescriptions: No Action albuterol sulfate 90 mcg/actuation aerosol powdr breath activated 2 inh INHALATION Q4-6H PRN (Reason: shortness of breath or wheezing) Qty: 1 1RF gabapentin 600 mg tablet 600 mg PO TID (DME) blood[place]glucose [place] [facility] [place] Instructions .[place] Rx Instructions: Teste sugar twice daily As directed trazodone 50 mg tablet See Rx Instructions .ROUTE .COMPLEX Rx Instructions: TAKE 1 TABLET BY MOUTH AT BEDTIME atorvastatin 10 mg tablet See Rx Instructions .ROUTE .COMPLEX Rx Instructions: TAKE 1 TABLET BY MOUTH AT BEDTIME metoprolol succinate 50 mg tablet extended release 24 hr See Rx Instructions .ROUTE .COMPLEX Rx Instructions: TAKE ONE TABLET BY MOUTH EVERY DAY glipizide 10 mg tablet extended release 24hr See Rx Instructions .ROUTE .COMPLEX Rx Instructions: TAKE 1 TABLET BY MOUTH ONCE DAILY sertraline 100 mg tablet See Rx Instructions .ROUTE .COMPLEX Rx Instructions: TAKE ONE TABLET BY MOUTH EVERY DAY (DME) Blood Glucose Test Strip See Rx Instructions MISCELLANEOUS Rx Instructions: As directed ([facility] [place]) Advanced Gluc Meter Test Strip Strip See Rx Instructions .ROUTE Rx Instructions: Test sugar twice daily As directed aspirin [Adult Low Dose Aspirin] 81 mg tablet,delayed release (DR/EC) 81 mg PO DAILY buspirone 10 mg tablet See Rx Instructions .ROUTE .COMPLEX Rx Instructions: TAKE 1 TABLET BY MOUTH THREE TIMES DAILY omeprazole 20 mg capsule,delayed release(DR/EC) See Rx Instructions .ROUTE .COMPLEX Rx Instructions: TAKE 1 CAPSULE BY MOUTH EVERY DAY ergocalciferol (vitamin D2) [Vitamin D2] 1,250 mcg (50,000 unit) capsule See Rx Instructions .ROUTE .COMPLEX Rx Instructions: TAKE 1 CAPSULE BY MOUTH ONCE WEEKLY DIRECTED clobetasol 0.05 % ointment 1 applic TOPICAL BID metformin 500 mg tablet extended release 24 hr See Rx Instructions .ROUTE .COMPLEX Rx Instructions: TAKE 2 TABLETS BY MOUTH EVERY NIGHT lisinopril 2.5 mg tablet See Rx Instructions .ROUTE .COMPLEX Rx Instructions: TAKE ONE TABLET BY MOUTH EVERY DAY cholecalciferol (vitamin D3) 25 mcg (1,000 unit) capsule See Rx Instructions .ROUTE .COMPLEX Rx Instructions: TAKE 1 CAPSULE BY MOUTH EVERY DAY quetiapine 50 mg tablet See Rx Instructions .ROUTE .COMPLEX Rx Instructions: TAKE 1 TABLET BY MOUTH AT BEDTIME levocetirizine 5 mg tablet See Rx Instructions .ROUTE .COMPLEX Rx Instructions: TAKE 1 TABLET BY MOUTH DAILY (DME) lancets [Advanced Travel Lancets] 30 gauge misc See Rx Instructions .ROUTE Rx Instructions: Test sugar twice daily As directed (DME) lancets [OneTouch Delica Plus Lancet] 30 gauge misc See Rx Instructions .ROUTE .COMPLEX Rx Instructions: DIRECTED Anoro Ellipta 62.5-25 mcg/actuation blister with device See Rx Instructions .ROUTE .COMPLEX Rx Instructions: USE 1 INHALATION ONCE DAILY Referrals Follow up/Referrals: Isis Jacques PA [Primary Care Provider] - See instructions Activity Restrictions/Add. Instructions Additional Instructions/Restrictions: All medication as directed. Stay well-hydrated. PCP follow-up in 1 to 2 days. Clinical Impressions Clinical Impression: Anxiety Instructions Patient Instructions: Anxiety Disorders Discharge ED Provider: Tomi Dang General Adult HPI General Chief complaint: Anxiety Stated complaint: N/V Anxiety Time Seen by Provider: 02/10/22 21:17 Mode of Arrival: EMS Source of Information: Patient Limitations: No Limitations History of Present Illness HPI narrative: 46yo F presents to the ER via EMS with multiple complaints. [place]
[2022-02-10 21:40] LABS: Basophils # 0.1 K/mm3 (0-0.2); Basophils % 0.6 % (0.1-2.0); Eosinophils % 0.1 % (0.1-12.0); Hematocrit 47.5 % (37.0-47.0); Hemoglobin 15.5 g/dL (12.2-16.2); Lymphocytes # 2.3 K/mm3 (0.7-4.5); Lymphocytes % 25.4 % (10-50); Mean Corpuscular HGB Conc 32.6 g/dL (31.8-35.4); Mean Corpuscular Volume 95.1 fl (81-99); Mean Platelet Volume 7.9 fl (7.4-10.4); Monocytes # 0.4 K/mm3 (0.1-1.0); Monocytes % 4.4 % (1.7-9.3); Neutrophils # 6.4 K/mm3 (1.8-7.8); Neutrophils % 69.4 % (37.0-80.0); Platelet Count 239 K/mm3 (142-424); Red Cell Distribution Width 15.1 % (11.5-17.5); White Blood Count 9.2 K/mm3 (4.8-10.8)
[2022-02-10 21:46] LABS: Chloride 105 mmol/L (98-107)
[2022-02-10 21:47] LABS: Potassium 3.8 mmoL/L (3.5-5.1); Sodium 139 mmol/L (136-145)
[2022-02-10 21:49] LABS: Alanine Aminotransferase 66 U/L (12-78); Albumin Level 4.2 g/dl (3.5-5.0); Alkaline Phosphatase 119 U/L (38-126); Anion Gap 17.8 mEq/L (5-15); Aspartate Amino Transferase 75 U/L (14-36); Bilirubin,Total 1.1 mg/dl (0.2-1.3); Blood Urea Nitrogen 9 mg/dl (7-17); Carbon Dioxide 20 mmol/L (22.0-30.0); Creatinine Clearance Estimated 100 mL/min (50-200); Estimated Glomerular Filt Rate 107 ml/min (>60); GFR (African American) 130 ML/MIN (>60); Lipase 135 U/L (23-300)
[2022-02-10 21:50] LABS: Calcium 10.4 mg/dl (8.4-10.2); Globulin 4.3 g/dL (1.3-3.2); Glucose 153 mg/dl (74-100); Total Protein,Serum 8.5 g/dl (6.3-8.2)
[2022-02-10 22:36] VITALS: BP 170/72; PULSE 78; RESP 17; TEMP 37; O2SAT 99
== END 2022-02-10 22:40 | disposition home or self-care (01) ==
PROVIDERS: Emergency Provider Family Medicine; PCP Physician Assistant
DX: M54.16 Radiculopathy, lumbar region (principal); R06.02 Shortness of breath; R11.2 Nausea with vomiting, unspecified; R53.81 Other malaise; I10 Essential (primary) hypertension; I25.10 Atherosclerotic heart disease of native coronary artery without angina pectoris; K21.9 Gastro-esophageal reflux disease without esophagitis; E78.00 Pure hypercholesterolemia, unspecified; E11.40 Type 2 diabetes mellitus with diabetic neuropathy, unspecified; F41.1 Generalized anxiety disorder; F17.210 Nicotine dependence, cigarettes, uncomplicated; Z79.84 Long term (current) use of oral hypoglycemic drugs; Z79.899 Other long term (current) drug therapy; Z79.82 Long term (current) use of aspirin; Z79.51 Long term (current) use of inhaled steroids
CPT/HCPCS: 80053; 83690; 85025; 96361; 96374; 99284

== ENCOUNTER 2022-02-21 14:10 | Emergency (ER) | payer MEDICAID, SELFPAY ==
[2022-02-21 14:11] VITALS: BP 147/99; PULSE 96; RESP 19; TEMP 37.2; O2SAT 94; BMI 54.6
--- NOTE | 2022-02-21 14:23 | EXP.UTC ---
Discharge Plan Disposition Patient Disposition: Home, Self-Care Condition: Good Prescriptions Prescriptions: New ondansetron 4 mg Tablet,Disintegrating 4 mg PO Q8H PRN (Reason: Nausea) Qty: 20 0RF No Action albuterol sulfate 90 mcg/actuation aerosol powdr breath activated 2 inh INHALATION Q4-6H PRN (Reason: shortness of breath or wheezing) Qty: 1 1RF gabapentin 600 mg tablet 600 mg PO TID (DME) blood-glucose meter [Advanced Glucose Meter] [facility] [place] See Rx Instructions .ROUTE Rx Instructions: Teste sugar twice daily As directed trazodone 50 mg tablet See Rx Instructions .ROUTE .COMPLEX Rx Instructions: TAKE 1 TABLET BY MOUTH AT BEDTIME atorvastatin 10 mg tablet See Rx Instructions .ROUTE .COMPLEX Rx Instructions: TAKE 1 TABLET BY MOUTH AT BEDTIME metoprolol succinate 50 mg tablet extended release 24 hr See Rx Instructions .ROUTE .COMPLEX Rx Instructions: TAKE ONE TABLET BY MOUTH EVERY DAY glipizide 10 mg tablet extended release 24hr See Rx Instructions .ROUTE .COMPLEX Rx Instructions: TAKE 1 TABLET BY MOUTH ONCE DAILY sertraline 100 mg tablet See Rx Instructions .ROUTE .COMPLEX Rx Instructions: TAKE ONE TABLET BY MOUTH EVERY DAY (DME) Blood Glucose Test Strip See Rx Instructions MISCELLANEOUS Rx Instructions: As directed [place] [place] Advanced Gluc Meter Test Strip Strip See Rx Instructions .ROUTE Rx Instructions: Test sugar twice daily As directed aspirin [Adult Low Dose Aspirin] 81 mg tablet,delayed release (DR/EC) 81 mg PO DAILY buspirone 10 mg tablet See Rx Instructions .ROUTE .COMPLEX Rx Instructions: TAKE 1 TABLET BY MOUTH THREE TIMES DAILY omeprazole 20 mg capsule,delayed release(DR/EC) See Rx Instructions .ROUTE .COMPLEX Rx Instructions: TAKE 1 CAPSULE BY MOUTH EVERY DAY ergocalciferol (vitamin D2) [Vitamin D2] 1,250 mcg (50,000 unit) capsule See Rx Instructions .ROUTE .COMPLEX Rx Instructions: TAKE 1 CAPSULE BY MOUTH ONCE WEEKLY DIRECTED clobetasol 0.05 % ointment 1 applic TOPICAL BID metformin 500 mg tablet extended release 24 hr See Rx Instructions .ROUTE .COMPLEX Rx Instructions: TAKE 2 TABLETS BY MOUTH EVERY NIGHT lisinopril 2.5 mg tablet See Rx Instructions .ROUTE .COMPLEX Rx Instructions: TAKE ONE TABLET BY MOUTH EVERY DAY cholecalciferol (vitamin D3) 25 mcg (1,000 unit) capsule See Rx Instructions .ROUTE .COMPLEX Rx Instructions: TAKE 1 CAPSULE BY MOUTH EVERY DAY quetiapine 50 mg tablet See Rx Instructions .ROUTE .COMPLEX Rx Instructions: TAKE 1 TABLET BY MOUTH AT BEDTIME levocetirizine 5 mg tablet See Rx Instructions .ROUTE .COMPLEX Rx Instructions: TAKE 1 TABLET BY MOUTH DAILY (DME) lancets [Advanced Travel Lancets] 30 gauge misc See Rx Instructions .ROUTE Rx Instructions: Test sugar twice daily As directed (DME) lancets [OneTouch Delica Plus Lancet] 30 gauge misc See Rx Instructions .ROUTE .COMPLEX Rx Instructions: DIRECTED Anoro Ellipta 62.5-25 mcg/actuation blister with device See Rx Instructions .ROUTE .COMPLEX Rx Instructions: USE 1 INHALATION ONCE DAILY Referrals Follow up/Referrals: Isis Jacques PA [Primary Care Provider] - See instructions Activity Restrictions/Add. Instructions Additional Instructions/Restrictions: Drink plenty of fluids. Take tylenol or ibuprofen for pain or fever. Take the medications as directed. Follow up with your regular doctor. GO TO THE ER FOR ANY WORSENING SYMPTOMS Clinical Impressions Clinical Impression: Gastroenteritis Instructions Patient Instructions: DI for Viral Gastroenteritis -- Adult, Ondansetron Discharge ED Provider: Milan Krishna [facility] [place] HPI General Stated complaint: vomiting, diarrhea Time Seen by Provider:
[2022-02-21 14:55] LABS: UTC Strep Screen (Rapid) Negative (Negative)
[2022-02-21 14:56] LABS: UTC Influenza A Antigen Negative (Negative); UTC Influenza B Antigen Negative (Negative)
[2022-02-21 15:15] VITALS: BP 147/99; PULSE 96; RESP 19; TEMP 37.2; O2SAT 94
== END 2022-02-21 15:15 | disposition home or self-care (01) ==
PROVIDERS: Emergency Provider Nurse Practitioner Family; PCP Physician Assistant; Referring Provider Physician Assistant
DX: K52.9 Noninfective gastroenteritis and colitis, unspecified (principal)
CPT/HCPCS: 87804; 87880; 99212; G0463

== ENCOUNTER 2022-02-21 15:19 | Outpatient (CLI) | payer MEDICAID, SELFPAY ==
[2022-02-21 15:23] VITALS: BMI 54.3
[2022-02-21 15:40] LABS: Microscopic, Urine URINE MICROSCOPIC (MICROSCOPIC)
[2022-02-21 15:44] LABS: Basophils # 0.1 K/mm3 (0-0.2); Basophils % 1.1 % (0.1-2.0); Eosinophils % 0.6 % (0.1-12.0); Hematocrit 45.6 % (37.0-47.0); Hemoglobin 14.6 g/dL (12.2-16.2); Lymphocytes # 1.2 K/mm3 (0.7-4.5); Lymphocytes % 18.2 % (10-50); Mean Corpuscular HGB Conc 32.1 g/dL (31.8-35.4); Mean Corpuscular Hemoglobin 30.6 pg (27.0-31.2); Mean Corpuscular Volume 95.2 fl (81-99); Mean Platelet Volume 7.7 fl (7.4-10.4); Monocytes # 0.3 K/mm3 (0.1-1.0); Monocytes % 3.8 % (1.7-9.3); Neutrophils % 76.3 % (37.0-80.0); Platelet Count 182 K/mm3 (142-424); Red Blood Count 4.79 M/mm3 (4.20-5.40); Red Cell Distribution Width 14.9 % (11.5-17.5); White Blood Count 6.5 K/mm3 (4.8-10.8)
[2022-02-21 15:45] LABS: Appearance,Urine CLEAR (Clear); Bilirubin,Urine Negative (Negative); Blood, Urine Negative (Negative); Color,Urine YELLOW (Yellow); Glucose,Urine (UA) 3+ (Negative); Ketones,Urine Negative (Negative); Leukocyte Esterase,Urine Negative (Negative); Nitrate,Urine Negative (Negative); PH,Urine 6.5 (5.0-8.5); Protein,Urine Negative (Negative); Urobilinogen,Urine 0.2 EU/dl (0.2)
[2022-02-21 15:55] LABS: Chloride 106 mmol/L (98-107)
[2022-02-21 15:56] LABS: Potassium 4.1 mmoL/L (3.5-5.1); Sodium 138 mmol/L (136-145)
[2022-02-21 15:57] LABS: RBC,Urine Occasional #/hpf (0-3); WBC,Urine Occasional #/hpf (0-3)
[2022-02-21 15:58] LABS: Alanine Aminotransferase 64 U/L (12-78); Alkaline Phosphatase 113 U/L (38-126); Aspartate Amino Transferase 75 U/L (14-36); Bilirubin,Total 0.7 mg/dl (0.2-1.3); Blood Urea Nitrogen 9 mg/dl (7-17); Creatinine Clearance Estimated 100 mL/min (50-200); Estimated Glomerular Filt Rate 107 ml/min (>60); GFR (African American) 130 ML/MIN (>60)
[2022-02-21 15:59] LABS: Albumin Level 3.7 g/dl (3.5-5.0); Albumin/Globulin Ratio 0.9 (1.1-1.8); Anion Gap 13.1 mEq/L (5-15); Calcium 9.2 mg/dl (8.4-10.2); Carbon Dioxide 23 mmol/L (22.0-30.0); Globulin 4.2 g/dL (1.3-3.2); Glucose 122 mg/dl (74-100); Total Protein,Serum 7.9 g/dl (6.3-8.2)
[2022-02-21 16:02] VITALS: BP 159/91; PULSE 87; RESP 18; O2SAT 98
--- NOTE | 2022-02-21 16:10 | PC.NURSE ---
1610-notified ashley Hopkins with lab results no new orders at this time.
[2022-02-21 17:11] VITALS: BP 138/99; PULSE 87; RESP 18
== END 2022-02-21 17:11 | disposition home or self-care (01) ==
LOC: INF 15:20
PROVIDERS: PCP Physician Assistant; Visit Provider Physician Assistant
DX: E86.0 Dehydration (principal); K52.9 Noninfective gastroenteritis and colitis, unspecified
CPT/HCPCS: 80053; 81001; 85025; 96360; 96375; C9803; U0003; U0005

== ENCOUNTER → 2022-02-23 11:11 | Outpatient (CLI) | payer MEDICAID, SELFPAY ==
[2022-02-23 11:17] LABS: Adenovirus F 40/41, stool Not Detected (NotDetected); Astrovirus Not Detected (NotDetected); Campylobacter Not Detected (NotDetected); Clostridium Difficile A/B, PCR Not Detected (NotDetected); Cryptosporidium Not Detected (NotDetected); Cyclospora Cayetanesis Not Detected (NotDetected); Entamoeba histolytica Not Detected (NotDetected); Enteroaggregative E coli Not Detected (NotDetected); Enteropathogenic E coli Not Detected (NotDetected); Enterotoxigenic E coli Not Detected (NotDetected); Giardia lamblia Not Detected (NotDetected); Norovirus Not Detected (NotDetected); Plesimonas Shigalloides, PCR Not Detected (NotDetected); Rotavirus A Not Detected (NotDetected); Salmonella, PCR Not Detected (NotDetected); Shiga-like toxin E coli Not Detected (NotDetected); Shigella Enterovasive E coli Not Detected (NotDetected); Vibrio Cholerae Not Detected (NotDetected); Vibrio, PCR Not Detected (NotDetected); Yersinia Entercolitica, PCR Not Detected (NotDetected)
[2022-02-23 14:57] LABS: Sapovirus Detected (NotDetected)
== END ==
PROVIDERS: PCP Physician Assistant; Visit Provider Nurse Practitioner Family
DX: R19.7 Diarrhea, unspecified (principal); A08.11 Acute gastroenteropathy due to Norwalk agent
CPT/HCPCS: 87507

== ENCOUNTER 2022-02-24 10:22 | Emergency (ER) | payer MEDICAID, SELFPAY ==
[2022-02-24 10:23] VITALS: BP 135/107; PULSE 87; RESP 18; TEMP 36.5; O2SAT 99; BMI 54.6
--- NOTE | 2022-02-24 10:37 | HMH.EDGENADL ---
Discharge Plan Disposition Patient Disposition: Home, Self-Care Condition: Fair Prescriptions Prescriptions: No Action albuterol sulfate 90 mcg/actuation aerosol powdr breath activated 2 inh INHALATION Q4-6H PRN (Reason: shortness of breath or wheezing) Qty: 1 1RF gabapentin 600 mg tablet 600 mg PO TID (DME) blood-glucose meter [Advanced Glucose Meter] [facility] See Rx Instructions .ROUTE Rx Instructions: Teste sugar twice daily As directed trazodone 50 mg tablet See Rx Instructions .ROUTE .COMPLEX Rx Instructions: TAKE 1 TABLET BY MOUTH AT BEDTIME atorvastatin 10 mg tablet See Rx Instructions .ROUTE .COMPLEX Rx Instructions: TAKE 1 TABLET BY MOUTH AT BEDTIME metoprolol succinate 50 mg tablet extended release 24 hr See Rx Instructions .ROUTE .COMPLEX Rx Instructions: TAKE ONE TABLET BY MOUTH EVERY DAY glipizide 10 mg tablet extended release 24hr See Rx Instructions .ROUTE .COMPLEX Rx Instructions: TAKE 1 TABLET BY MOUTH ONCE DAILY sertraline 100 mg tablet See Rx Instructions .ROUTE .COMPLEX Rx Instructions: TAKE ONE TABLET BY MOUTH EVERY DAY (DME) Blood Glucose Test Strip See Rx Instructions MISCELLANEOUS Rx Instructions: As directed ([facility] [place]) Advanced Gluc Meter Test Strip Strip See Rx Instructions .ROUTE Rx Instructions: Test sugar twice daily As directed aspirin [Adult Low Dose Aspirin] 81 mg tablet,delayed release (DR/EC) 81 mg PO DAILY buspirone 10 mg tablet See Rx Instructions .ROUTE .COMPLEX Rx Instructions: TAKE 1 TABLET BY MOUTH THREE TIMES DAILY omeprazole 20 mg capsule,delayed release(DR/EC) See Rx Instructions .ROUTE .COMPLEX Rx Instructions: TAKE 1 CAPSULE BY MOUTH EVERY DAY ergocalciferol (vitamin D2) [Vitamin D2] 1,250 mcg (50,000 unit) capsule See Rx Instructions .ROUTE .COMPLEX Rx Instructions: TAKE 1 CAPSULE BY MOUTH ONCE WEEKLY DIRECTED clobetasol 0.05 % ointment 1 applic TOPICAL BID metformin 500 mg tablet extended release 24 hr See Rx Instructions .ROUTE .COMPLEX Rx Instructions: TAKE 2 TABLETS BY MOUTH EVERY NIGHT lisinopril 2.5 mg tablet See Rx Instructions .ROUTE .COMPLEX Rx Instructions: TAKE ONE TABLET BY MOUTH EVERY DAY cholecalciferol (vitamin D3) 25 mcg (1,000 unit) capsule See Rx Instructions .ROUTE .COMPLEX Rx Instructions: TAKE 1 CAPSULE BY MOUTH EVERY DAY quetiapine 50 mg tablet See Rx Instructions .ROUTE .COMPLEX Rx Instructions: TAKE 1 TABLET BY MOUTH AT BEDTIME levocetirizine 5 mg tablet See Rx Instructions .ROUTE .COMPLEX Rx Instructions: TAKE 1 TABLET BY MOUTH DAILY (DME) lancets [Advanced Travel Lancets] 30 gauge misc See Rx Instructions .ROUTE Rx Instructions: Test sugar twice daily As directed (DME) lancets [OneTouch Delica Plus Lancet] 30 gauge misc See Rx Instructions .ROUTE .COMPLEX Rx Instructions: DIRECTED Anoro Ellipta 62.5-25 mcg/actuation blister with device See Rx Instructions .ROUTE .COMPLEX Rx Instructions: USE 1 INHALATION ONCE DAILY ondansetron 4 mg Tablet,Disintegrating 4 mg PO Q8H PRN (Reason: Nausea) Qty: 20 0RF Referrals Follow up/Referrals: Isis Jacques PA [Primary Care Provider] - See instructions Activity Restrictions/Add. Instructions Additional Instructions/Restrictions: Recommend starting to take Imodium as directed on the box. Clinical Impressions Clinical Impression: Acute infectious diarrhea Instructions Patient Instructions: Diarrhea, Loperamide Discharge ED Provider: Fredrick Ta General Adult HPI General Chief complaint: Nausea/Vomiting/Diarrhea Stated complaint: Abd pain, diarrhea, dizzy, heart racing Time Seen by Provider: 02/24/22 10:30 History of Present Illness HPI narrative: Patient is a 46-year-old [employer]
[2022-02-24 11:00] LABS: Basophils % 0.6 % (0.1-2.0); Eosinophils # 0.1 K/mm3 (0.0-0.4); Eosinophils % 1.7 % (0.1-12.0); Hematocrit 46.2 % (37.0-47.0); Hemoglobin 14.6 g/dL (12.2-16.2); Lymphocytes # 1.1 K/mm3 (0.7-4.5); Lymphocytes % 22.6 % (10-50); Mean Corpuscular HGB Conc 31.6 g/dL (31.8-35.4); Mean Corpuscular Hemoglobin 30.9 pg (27.0-31.2); Mean Corpuscular Volume 97.7 fl (81-99); Mean Platelet Volume 8.3 fl (7.4-10.4); Monocytes # 0.2 K/mm3 (0.1-1.0); Monocytes % 4.6 % (1.7-9.3); Neutrophils # 3.4 K/mm3 (1.8-7.8); Neutrophils % 70.5 % (37.0-80.0); Platelet Count 199 K/mm3 (142-424); Red Blood Count 4.73 M/mm3 (4.20-5.40); Red Cell Distribution Width 15.2 % (11.5-17.5); White Blood Count 4.9 K/mm3 (4.8-10.8)
[2022-02-24 11:01] VITALS: BP 127/58; PULSE 79; RESP 20; O2SAT 98
[2022-02-24 11:06] LABS: Alanine Aminotransferase 153 U/L (12-78); Albumin Level 3.6 g/dl (3.5-5.0); Albumin/Globulin Ratio 0.9 (1.1-1.8); Alkaline Phosphatase 122 U/L (38-126); Anion Gap 10.9 mEq/L (5-15); Aspartate Amino Transferase 221 U/L (14-36); Bilirubin,Total 0.8 mg/dl (0.2-1.3); Blood Urea Nitrogen 11 mg/dl (7-17); Calcium 8.5 mg/dl (8.4-10.2); Carbon Dioxide 24 mmol/L (22.0-30.0); Chloride 108 mmol/L (98-107); Creatinine Clearance Estimated 86 mL/min (50-200); Estimated Glomerular Filt Rate 90 ml/min (>60); GFR (African American) 109 ML/MIN (>60); Glucose 135 mg/dl (74-100); Potassium 3.9 mmoL/L (3.5-5.1); Sodium 139 mmol/L (136-145); Total Protein,Serum 7.6 g/dl (6.3-8.2)
[2022-02-24 11:11] LABS: C-Reactive Protein 2.6 mg/L (0-4)
[2022-02-24 11:25] LABS: Procalcitonin 0.092 ng/mL (0.0-2.0)
[2022-02-24 11:49] VITALS: BP 149/84; PULSE 88; O2SAT 97
[2022-02-24 12:01] VITALS: BP 154/89; PULSE 79; O2SAT 98
[2022-02-24 12:36] VITALS: BP 154/89; PULSE 85; RESP 20; TEMP 36.5; O2SAT 96
== END 2022-02-24 12:41 | disposition home or self-care (01) ==
PROVIDERS: Emergency Provider Student in an Organized Health Care Education/Training Program; PCP Physician Assistant
DX: A09 Infectious gastroenteritis and colitis, unspecified (principal); I10 Essential (primary) hypertension; E78.5 Hyperlipidemia, unspecified; E11.40 Type 2 diabetes mellitus with diabetic neuropathy, unspecified; R10.84 Generalized abdominal pain; F41.9 Anxiety disorder, unspecified; M54.16 Radiculopathy, lumbar region; F17.210 Nicotine dependence, cigarettes, uncomplicated
CPT/HCPCS: 80053; 84145; 85025; 86140; 96361; 96374; 99285; J2405

== ENCOUNTER → 2022-03-07 15:46 | Outpatient (CLI) | payer MEDICAID, SELFPAY | PROVIDERS: PCP Physician Assistant; Visit Provider Physician Assistant | DX: N39.0 Urinary tract infection, site not specified (principal); B96.29 Other Escherichia coli [E. coli] as the cause of diseases classified elsewhere | CPT/HCPCS: 87086; 87088; 87186 ==

== ENCOUNTER → 2022-03-21 16:25 | Outpatient (CLI) | payer MEDICAID, SELFPAY | PROVIDERS: PCP Physician Assistant; Visit Provider Physician Assistant | DX: R00.2 Palpitations (principal) | CPT/HCPCS: 93225; 93226 ==

== ENCOUNTER → 2023-01-08 09:13 | Outpatient (CLI) | payer SELFPAY ==
[2023-01-08 19:05] LABS: Basophils % 0.8 % (0.1-2.0); Eosinophils # 0.2 K/mm3 (0.0-0.4); Eosinophils % 3.1 % (0.1-12.0); Hematocrit 43.8 % (37.0-47.0); Hemoglobin 14.1 g/dL (12.2-16.2); Lymphocytes # 2.3 K/mm3 (0.7-4.5); Mean Corpuscular HGB Conc 32.2 g/dL (31.8-35.4); Mean Corpuscular Hemoglobin 30.4 pg (27.0-31.2); Mean Corpuscular Volume 94.4 fl (81-99); Mean Platelet Volume 8.3 fl (7.4-10.4); Monocytes # 0.3 K/mm3 (0.1-1.0); Monocytes % 5.7 % (1.7-9.3); Neutrophils # 2.3 K/mm3 (1.8-7.8); Neutrophils % 45.4 % (37.0-80.0); Platelet Count 140 K/mm3 (142-424); Red Blood Count 4.63 M/mm3 (4.20-5.40); Red Cell Distribution Width 15.5 % (11.5-17.5); White Blood Count 5.1 K/mm3 (4.8-10.8)
[2023-01-08 20:26] LABS: Alanine Aminotransferase 35 U/L (12-78); Albumin Level 3.5 g/dl (3.5-5.0); Albumin/Globulin Ratio 0.9 (1.1-1.8); Alkaline Phosphatase 216 U/L (38-126); Anion Gap 12.1 mEq/L (5-15); Aspartate Amino Transferase 56 U/L (14-36); Bilirubin,Total 0.6 mg/dl (0.2-1.3); Blood Urea Nitrogen 10 mg/dl (7-17); Calcium 9.3 mg/dl (8.4-10.2); Carbon Dioxide 26 mmol/L (22.0-30.0); Chloride 104 mmol/L (98-107); Chol/HDL Ratio 4.3 (1-3.5); Cholesterol 169 mg/dl (140-200); Estimated Glomerular Filt Rate 77 ml/min (>60); GFR (African American) 93 ML/MIN (>60); Globulin 4.1 g/dL (1.3-3.2); Glucose 135 mg/dl (74-100); HDL Cholesterol 39 mg/dl (40-60); Potassium 4.1 mmoL/L (3.5-5.1); Sodium 138 mmol/L (136-145); Total Protein,Serum 7.6 g/dl (6.3-8.2); Triglycerides 120 mg/dl (30-150); VLDL Cholesterol 24 mg/dL (0-40)
[2023-01-08 20:37] LABS: Direct LDL Cholesterol 102.14 mg/dL (100-129)
[2023-01-08 20:44] LABS: Free Thyroxine Index 1.3 ug/dL (5.93-13.13); T4 (Thyroxine) 4.4 ug/dl (5.53-11.0); Triiodothryronine (T3) Uptake 30 % (23.5-40.5)
[2023-01-08 20:45] LABS: 25-OH Vitamin D, Total 54.3 ng/mL (30-100)
[2023-01-08 20:58] LABS: Thyroid Stimulating Hormone 1.07 uIU/mL (0.465-4.68)
[2023-01-08 20:59] LABS: Thyroid Stimulating Hormone 1.06 uIU/mL (0.465-4.68)
[2023-01-08 21:46] LABS: Hemoglobin A1C 5.9 % (4.0-6.0)
[2023-01-08 23:23] LABS: Microalbumin < 6.000 mg/L (0-16.7)
[2023-01-08 23:53] LABS: Creatinine,Urine Random 81 mg/dL (Not Estab.)
[2023-01-10 08:17] LABS: Thyroid Peroxidase Antibodies 10 IU/mL (0-34)
[2023-01-14 18:04] LABS: Thyroid Stimulating Immunoglob <0.10 IU/L (0.00-0.55)
== END ==
PROVIDERS: PCP Physician Assistant; Visit Provider Physician Assistant
DX: E11.40 Type 2 diabetes mellitus with diabetic neuropathy, unspecified (principal); E66.01 Morbid (severe) obesity due to excess calories; Z68.43 Body mass index [BMI] 50.0-59.9, adult; Z79.899 Other long term (current) drug therapy; Z79.84 Long term (current) use of oral hypoglycemic drugs
CPT/HCPCS: 80053; 80061; 82043; 82306; 82570; 83036; 84436; 84443; 84445; 84479; 85025; 86376

== ENCOUNTER → 2023-01-09 14:49 | Outpatient (CLI) | payer MEDICAID, SELFPAY | PROVIDERS: PCP Physician Assistant; Visit Provider Physician Assistant | DX: R79.89 Other specified abnormal findings of blood chemistry (principal) | CPT/HCPCS: 84445; 86376 ==

== ENCOUNTER 2023-03-01 12:48 | Outpatient (CLI) | payer MEDICAID, SELFPAY ==
--- NOTE | 2023-03-01 12:48 | US_ITS ---
FINAL REPORT CLINICAL HISTORY: Abnormal thyroid labs COMPARISON: None FINDINGS: THYROID ULTRASOUND: The right lobe of the thyroid measures 5 x 1.4 x 1 cm in size. No evidence of focal mass or nodule is seen in the right lobe. The left lobe of the thyroid measures 4.5 x 1.5 x 1.3 cm in size. There are several small subcentimeter nodules present in the left lobe. The first measures 3 x 3 x 2 mm in size, is cystic, a TI-RADS category 1 nodule. The second measures 3 x 2 x 2 mm in size, is cystic, a TI-RADS category 1 nodule by category. The third nodule is 3 x 4 x 2 mm in size, solid, hypoechoic, a TI-RADS category 4 nodule. None of these nodules require follow-up at this time. The isthmus is normal in appearance and measures 2.5 mm in thickness. IMPRESSION: Several small nodules in the left lobe of the thyroid, all less than 5 mm in size, which do not require follow-up at this time. The remainder of the thyroid gland is unremarkable. Reviewed, Interpreted and Dictated by Tim Anderson III, MD Transcribed by Liudmila Patino Authenticated and [facility]
== END 2023-03-01 23:59 ==
PROVIDERS: PCP Physician Assistant; Visit Provider Physician Assistant
DX: R79.89 Other specified abnormal findings of blood chemistry (principal)
CPT/HCPCS: 76536

== ENCOUNTER 2023-03-27 15:03 | Emergency (ER) | payer MEDICAID, SELFPAY ==
[2023-03-27 15:06] VITALS: BP 115/98; PULSE 96; RESP 18; TEMP 36.6; O2SAT 100; BMI 48.6
--- NOTE | 2023-03-27 15:54 | PC.NURSE ---
I rounded on the pt, she states she feels like she is going to pass out. I told Dr. Hall and asked if he could talk to her.
--- NOTE | 2023-03-27 16:03 | [facility].EDGENADL ---
Discharge Plan Disposition Patient Disposition: Home, Self-Care Prescriptions Prescriptions: New loperamide 2 mg capsule 2 mg PO Q6H PRN (Reason: loose stool) 5 Days Qty: 20 0RF Rx Instructions: Please take 4 mg initially, followed by 2 mg after each loose stool, maximum 16 mg/day ondansetron 4 mg tablet,disintegrating 4 mg PO Q6H PRN (Reason: nausea and vomiting) 5 Days Qty: 20 0RF No Action albuterol sulfate 90 mcg/actuation aerosol powdr breath activated 2 inh INHALATION Q4-6H PRN (Reason: shortness of breath or wheezing) Qty: 1 1RF gabapentin 600 mg tablet 600 mg PO TID Qty: 90 2RF sertraline 100 mg tablet See Rx Instructions .ROUTE .COMPLEX Qty: 90 2RF Rx Instructions: TAKE ONE TABLET BY MOUTH EVERY DAY Anoro Ellipta 62.5-25 mcg/actuation blister with device See Rx Instructions .ROUTE .COMPLEX Qty: 60 0RF Dose Instruction: USE 1 INHALATION ONCE DAILY Rx Instructions: USE 1 INHALATION ONCE DAILY levocetirizine 5 mg tablet See Rx Instructions .ROUTE .COMPLEX Qty: 30 0RF Dose Instruction: TAKE 1 TABLET BY MOUTH DAILY Rx Instructions: TAKE 1 TABLET BY MOUTH DAILY omeprazole 20 mg capsule,delayed release(DR/EC) See Rx Instructions .ROUTE .COMPLEX Qty: 90 2RF Dose Instruction: TAKE 1 CAPSULE BY MOUTH ONCE DAILY Rx Instructions: TAKE 1 CAPSULE BY MOUTH ONCE DAILY metformin 500 mg tablet extended release 24 hr See Rx Instructions .ROUTE .COMPLEX Qty: 180 2RF Dose Instruction: TAKE 2 TABLETS BY MOUTH EVERY NIGHT Rx Instructions: TAKE 2 TABLETS BY MOUTH EVERY NIGHT glipizide 10 mg tablet extended release 24hr See Rx Instructions .ROUTE .COMPLEX Qty: 90 2RF Dose Instruction: TAKE 1 TABLET BY MOUTH ONCE DAILY Rx Instructions: TAKE 1 TABLET BY MOUTH ONCE DAILY quetiapine 50 mg tablet See Rx Instructions .ROUTE .COMPLEX Qty: 90 2RF Dose Instruction: TAKE 1 TABLET BY MOUTH AT BEDTIME Rx Instructions: TAKE 1 TABLET BY MOUTH AT BEDTIME metoprolol succinate 50 mg tablet extended release 24 hr See Rx Instructions .ROUTE .COMPLEX Qty: 90 2RF Dose Instruction: TAKE ONE TABLET BY MOUTH EVERY DAY Rx Instructions: TAKE ONE TABLET BY MOUTH EVERY DAY cholecalciferol (vitamin D3) 25 mcg (1,000 unit) capsule See Rx Instructions .ROUTE .COMPLEX Qty: 90 2RF Dose Instruction: TAKE 1 CAPSULE BY MOUTH EVERY DAY Rx Instructions: TAKE 1 CAPSULE BY MOUTH EVERY DAY benzonatate 200 mg capsule 200 mg PO TID PRN (Reason: cough) 10 Days Qty: 30 0RF Invokana 300 mg tablet 300 mg PO DAILY Qty: 90 3RF (DME) OneTouch Ultra Test Strip See Rx Instructions .ROUTE .COMPLEX Qty: 100 12RF Dose Instruction: TEST SUGAR TWICE DAILY DIRECTED Rx Instructions: TEST SUGAR TWICE DAILY DIRECTED buspirone 10 mg tablet See Rx Instructions .ROUTE .COMPLEX Qty: 270 0RF Dose Instruction: TAKE 1 TABLET BY MOUTH THREE TIMES DAILY MAY CAUSE DROWSINESS Rx Instructions: TAKE 1 TABLET BY MOUTH THREE TIMES DAILY MAY CAUSE DROWSINESS lisinopril 2.5 mg tablet See Rx Instructions .ROUTE .COMPLEX Qty: 90 0RF Dose Instruction: TAKE ONE TABLET BY MOUTH EVERY DAY Rx Instructions: TAKE ONE TABLET BY MOUTH EVERY DAY atorvastatin 10 mg tablet See Rx Instructions .ROUTE .COMPLEX Qty: 90 0RF Dose Instruction: TAKE 1 TABLET BY MOUTH AT BEDTIME Rx Instructions: TAKE 1 TABLET BY MOUTH AT BEDTIME trazodone 50 mg tablet See Rx Instructions .ROUTE .COMPLEX Qty: 90 0RF Dose Instruction: TAKE 1 TABLET BY MOUTH AT BEDTIME Rx Instructions: TAKE 1 TABLET BY MOUTH AT BEDTIME ergocalciferol (vitamin D2) [Vitamin D2] 1,250 mcg (50,000 unit) capsule See Rx Instructions .ROUTE .COMPLEX Qty: 14 0RF Dose Instruction: TAKE 1 CAPSULE BY MOUTH ONCE WEEKLY DIRECTED Rx Instructions: TAKE 1 CAPSULE BY MOUTH ONCE WEEKLY DIRECTED (DME) lancets [OneTouch Delica Plus Lancet] 30 gauge misc See Rx Instructions .ROUTE .COMPLEX Qty: 100 5RF Dose Instruction: TEST SUGAR TWICE DAILY DIRECTED Rx Instructions: TEST SUGAR TWICE DAILY DIRECTED hydroxyzine pamoate 25 mg capsule See Rx Instructions .ROUTE .COMPLEX Qty: 60 1RF Dose Instruction: TAKE 1 CAPSULE BY MOUTH TWICE A DAY NEEDED FOR ANXIETY MAY CAUSE DROWSINESS Rx Instructions: TAKE 1 CAPSULE BY MOUTH TWICE A DAY NEEDED FOR ANXIETY MAY CAUSE DROWSINESS Januvia 100 mg tablet See Rx Instructions .ROUTE .COMPLEX Qty: 90 0RF Dose Instruction: TAKE 1 TABLET BY MOUTH ONCE DAILY Rx Instructions: TAKE 1 TABLET BY MOUTH ONCE DAILY (DME) blood-glucose meter [Advanced Glucose Meter] Misc See Rx Instructions .Route Rx Instructions: Teste sugar twice daily As directed (DME) Blood Glucose Test Strip See Rx Instructions MISCELLANEOUS Rx Instructions: As directed aspirin [Adult Low Dose Aspirin] 81 mg tablet,delayed release (DR/EC) 81 mg PO DAILY (DME) lancets [Advanced Travel Lancets] 30 gauge misc See Rx Instructions .Route Rx Instructions: Test sugar twice daily As directed Referrals Follow up/Referrals: Isis Jacques PA [Primary Care Provider] - See instructions Activity Restrictions/Add. Instructions Additional Instructions/Restrictions: Your symptoms are most likely secondary to a viral syndrome. Please return with any inability to tolerate fluids by mouth significant worsening of abdominal pain or other concerns. Clinical Impressions Clinical Impression: Nausea vomiting and diarrhea Instructions Patient Instructions: DI for Diarrhea and Traveler's Diarrhea -- Adult, DI for Diarrhea and Traveler's Diarrhea -- Child, DI for Nausea -- Adult, DI for Nausea -- Child Discharge ED Provider: Jonathan Hall General Adult HPI General Chief complaint: Nausea/Vomiting/Diarrhea Stated complaint: vomiting,headache Time Seen by Provider: 03/27/23 15:55 Mode of Arrival: Wheelchair Source of Information: Patient Limitations: No Limitations Description of Symptoms (Recalled from ER Triage Doc. by RN): pt presents to ED with c/o vomitting that began this am approx 0900. abdominal pain intermittent. History of Present Illness HPI narrative: Patient is a 47-year-old female with a history of morbid obesity diabetes autoimmune hepatitis with chronically elevated liver enzymes presents today with nausea vomiting and diarrhea that began this morning. States she felt well yesterday no fevers or chills no sick contacts that she is aware of no respiratory symptoms. She has had too numerous to count episodes of vomiting and diarrhea both of which have been nonbloody. States her abdomen is sore from straining it during vomiting episodes but otherwise has not had any significant abdominal pain. Related Data Home Medications Medication Instructions Recorded Confirmed aspirin 81 mg tablet,delayed 81 mg PO DAILY CAD 02/10/22 01/08/23 release (Adult Low Dose Aspirin) blood sugar diagnostic (Blood 02/10/22 01/08/23 Glucose Test strips) blood-glucose meter (Advanced 02/10/22 01/08/23 Glucose Meter) lancets 30 gauge (Advanced Travel 02/10/22 01/08/23 Lancets) Previous Rx's Medication Instructions Recorded albuterol sulfate 90 mcg/actuation 2 inh inhalation Q4-6H PRN 02/22/21 breath activated powder inhaler shortness of breath or wheezing #1 ea levocetirizine 5 mg tablet See Rx Instructions .Route 03/12/22 .COMPLEX #30 tabs umeclidinium 62.5 mcg-vilanterol See Rx Instructions .Route 03/12/22 25 mcg/actuation powdr for .COMPLEX #60 ea inhalation (Anoro Ellipta) omeprazole 20 mg capsule,delayed See Rx Instructions .Route 07/31/22 release .COMPLEX #90 caps sertraline 100 mg tablet See Rx Instructions .Route 09/06/22 .COMPLEX Depression #90 tabs cholecalciferol (vitamin D3) 25 See Rx Instructions .Route 10/01/22 mcg (1,000 unit) capsule .COMPLEX #90 caps glipizide 10 mg tablet, extended See Rx Instructions .Route 10/01/22 release 24 hr .COMPLEX #90 tabs metformin 500 mg tablet,extended See Rx Instructions .Route 10/01/22 release 24 hr .COMPLEX #180 tabs metoprolol succinate 50 mg See Rx Instructions .Route 10/01/22 tablet,extended release 24 hr .COMPLEX #90 tabs quetiapine 50 mg tablet See Rx Instructions .Route 10/01/22 .COMPLEX #90 tabs gabapentin 600 mg tablet 600 mg PO TID neuropathy #90 tabs 01/08/23 benzonatate 200 mg capsule 200 mg PO TID PRN cough 10 days 01/09/23 #30 caps canagliflozin 300 mg tablet 300 mg PO DAILY #90 tabs 01/15/23 (Invokana) blood sugar diagnostic (OneTouch #100 ea 01/21/23 Ultra Test strips) buspirone 10 mg tablet See Rx Instructions .Route 01/24/23 .COMPLEX #270 tabs lisinopril 2.5 mg tablet See Rx Instructions .Route 01/24/23 .COMPLEX #90 tabs atorvastatin 10 mg tablet See Rx Instructions .Route 02/25/23 .COMPLEX #90 ea ergocalciferol (vitamin D2) 1,250 See Rx Instructions .Route 02/25/23 mcg (50,000 unit) capsule (Vitamin .COMPLEX #14 caps D2) trazodone 50 mg tablet See Rx Instructions .Route 02/25/23 .COMPLEX #90 tabs hydroxyzine pamoate 25 mg capsule See Rx Instructions .Route 03/25/23 .COMPLEX #60 caps lancets 30 gauge (OneTouch Delica #100 ea 03/25/23 Plus Lancet) sitagliptin phosphate 100 mg See Rx Instructions .Route 03/25/23 tablet (Januvia) .COMPLEX #90 tabs loperamide 2 mg capsule 2 mg PO Q6H PRN loose stool 5 days 03/27/23 #20 caps ondansetron 4 mg disintegrating 4 mg PO Q6H PRN nausea and 03/27/23 tablet vomiting 5 days #20 tabs Allergies Allergy/AdvReac Type Severity Reaction Status Date / Time No Known Drug Allergies Allergy Unknown Verified 01/08/23 15:50 [facility] Disclaimer: The information contained in this section may have been updated after the patient was seen, as this information can be updated by other users. Medical History Anxiety Diabetes mellitus Diabetic neuropathy Dog scratch Hyperlipidemia Lumbar disc disease with radiculopathy Lumbar disc disease with radiculopathy Social History Smoking Status: Current every day smoker tobacco type: cigarettes packs per day: 1 alcohol intake: never substance use type: denies use current occupational status: unemployed Travel in the last 8 weeks: None household members: significant other housing: house ROS Obtained: Yes All systems reviewed & no additional complaints except as documented Physical Exam General General appearance: alert Respiratory Respiratory exam: Present normal lung sounds bilaterally Cardiovascular Cardiovascular exam: Present regular rate Abdominal Exam Abdominal exam: Present soft and tenderness (With the palpation there is diffuse tenderness that is mild no rebound or guarding abdomen is morbidly obese and exam is limited); Absent distention Neurological Exam Neurological exam: Present alert Medical Decision Making Red Inquiry Pt receiving controlled substance: No Vital Signs: 03/27/23 15:06 Temperature 97.9 F Temperature Source Oral Pulse Rate [Left Radial] 96 H Respiratory Rate 18 Blood Pressure [Right Arm] 115/98 H Blood Pressure Mean [Right Arm] 103 02 Sat by Pulse Oximetry 100 Oxygen Delivery Method Room Air Lab Data Lab results reviewed: Yes I reviewed the patient's lab results. Lab Results 03/27/23 15:24: WBC 10.3, RBC 5.05, Hgb 15.3, Hct 47.3 H, MCV 93.7, MCH 30.3, MCHC 32.4, RDW 16.0, Plt Count 143, MPV 8.4, Neut % (Auto) 89.5 H, Lymph % (Auto) 6.6 L, [place] % (Auto) 3.3, Eos % (Auto) 0.2, Baso % (Auto) 0.4, Neut # (Auto) 9.2 H, Lymph # (Auto) 0.7, [place] # (Auto) 0.3, Eos # (Auto) 0.0, Baso # (Auto) 0.0, Total Counted 100, Neutrophils % (Manual) 87 H, Lymphocytes % (Manual) 11, Monocytes % (Manual) 2, Platelet Estimate Normal, Hypochromasia 1+, Sodium 137, Potassium 4.2, Chloride 105, Carbon Dioxide 21 L, Anion Gap 15.2 H, BUN 9, Creatinine 0.80, Estimated Creat Clear 71, Estimated GFR 77, Est GFR ( Amer) 93, Glucose 167 H, Calcium 9.3, Total Bilirubin 1.3, AST 72 H, ALT 56, Alkaline Phosphatase 199 H, Total Protein 8.3 H, Albumin 3.7, Globulin 4.6 H, Albumin/Globulin Ratio 0.8 L, Lipase 217 03/27/23 15:24 03/27/23 15:24 Orders (Tests/Meds): ED MEDICATIONS Discontinued Medications Generic Name Dose Route Start Last Admin Trade Name Lance PRN Reason Stop Dose Admin Lactated Ringer's 1,000 mls @ 999 mls/hr 03/27/23 16:15 03/27/23 16:12 Lactated Ringer's 1000 Ml Bag IV 03/27/23 17:15 999 mls/hr .Q1H1M KESHIA Administration Ketorolac Tromethamine 15 mg 03/27/23 16:01 03/27/23 16:12 Ketorolac 30mg/Ml Vial IV 03/27/23 16:02 15 mg ONCE ONE Administration Ondansetron HCl 4 mg 03/27/23 16:02 03/27/23 16:12 Ondansetron 4mg/2ml Vial IV 03/27/23 16:03 4 mg ONCE ONE Administration ORDERS Category Date Time Status CBC w/Auto Diff [Complete Blood Count Auto Diff] Stat Lab 03/27/23 15:24 Completed CMP [Comprehensive Metabolic Panel] Stat Lab 03/27/23 15:24 Completed Lipase Stat Lab 03/27/23 15:24 Completed Medical Decision Narrative: Patient is a 47-year-old female with nausea vomiting diarrhea most likely viral gastroenteritis. Her abdominal exam is benign however she is morbidly obese which limits my exam. Certainly surgical pathology is on the differential but is unlikely at this point. Will err on the side of not getting a CT scan at this point is to have an alternative diagnosis that is more likely and it is benign. Will give her IV fluids Toradol Zofran and reassess. Reassessment 5:16 PM patient feeling much better serial abdominal exams are benign she is tolerating p.o. ready for discharge. Return precautions discussed antiemetic and antidiarrheal medications were prescribed. Very unlikely that this could advance to toxic megacolon she is advised to return with any worsening abdominal pain or inability tolerate fluids by mouth. She was discharged in improved and stable condition. Critical Care Critical Care Time Critical Care Time: No
[2023-03-27 16:11] LABS: Basophils % 0.4 % (0.1-2.0); Eosinophils % 0.2 % (0.1-12.0); Hematocrit 47.3 % (37.0-47.0); Hemoglobin 15.3 g/dL (12.2-16.2); Lymphocytes # 0.7 K/mm3 (0.7-4.5); Lymphocytes % 6.6 % (10-50); Mean Corpuscular HGB Conc 32.4 g/dL (31.8-35.4); Mean Corpuscular Hemoglobin 30.3 pg (27.0-31.2); Mean Corpuscular Volume 93.7 fl (81-99); Mean Platelet Volume 8.4 fl (7.4-10.4); Monocytes # 0.3 K/mm3 (0.1-1.0); Monocytes % 3.3 % (1.7-9.3); Neutrophils # 9.2 K/mm3 (1.8-7.8); Neutrophils % 89.5 % (37.0-80.0); Platelet Count 143 K/mm3 (142-424); Red Blood Count 5.05 M/mm3 (4.20-5.40); White Blood Count 10.3 K/mm3 (4.8-10.8)
[2023-03-27 16:12] LABS: Chloride 105 mmol/L (98-107); Potassium 4.2 mmoL/L (3.5-5.1); Sodium 137 mmol/L (136-145)
[2023-03-27] MEDS: ONDANSETRON 4MG/2ML VIAL 4 MG IV (16:12)
[2023-03-27] MEDS: KETOROLAC 30MG/ML VIAL 15 MG IV (16:12)
[2023-03-27] MEDS: LACTATED RINGERS 1000ML 1,000 ML 999 ML IV (16:12)
[2023-03-27 16:14] LABS: Alanine Aminotransferase 56 U/L (12-78); Alkaline Phosphatase 199 U/L (38-126); Aspartate Amino Transferase 72 U/L (14-36); Bilirubin,Total 1.3 mg/dl (0.2-1.3); Blood Urea Nitrogen 9 mg/dl (7-17); Creatinine Clearance Estimated 71 mL/min (50-200); Estimated Glomerular Filt Rate 77 ml/min (>60); GFR (African American) 93 ML/MIN (>60)
[2023-03-27 16:15] LABS: Albumin Level 3.7 g/dl (3.5-5.0); Albumin/Globulin Ratio 0.8 (1.1-1.8); Anion Gap 15.2 mEq/L (5-15); Calcium 9.3 mg/dl (8.4-10.2); Carbon Dioxide 21 mmol/L (22.0-30.0); Globulin 4.6 g/dL (1.3-3.2); Glucose 167 mg/dl (74-100); Lipase 217 U/L (23-300); MANUAL DIFFERENTIAL MANUAL DIFFERENTIAL (MANUAL DIFF); Total Protein,Serum 8.3 g/dl (6.3-8.2)
[2023-03-27 17:03] LABS: Hypochromasia 1+; Lymphocytes % 11 % (10-50); Monocytes % 2 % (2-9); Neutrophils % 87 % (42-76); Platelet Estimate Normal; Total Cells Counted 100
[2023-03-27 17:15] VITALS: BP 142/87; PULSE 99; RESP 16; TEMP 36.7; O2SAT 95
== END 2023-03-27 17:39 | disposition home or self-care (01) ==
PROVIDERS: Emergency Provider Student in an Organized Health Care Education/Training Program; PCP Physician Assistant
DX: R11.2 Nausea with vomiting, unspecified (principal); R19.7 Diarrhea, unspecified; E11.40 Type 2 diabetes mellitus with diabetic neuropathy, unspecified; E78.5 Hyperlipidemia, unspecified; K75.4 Autoimmune hepatitis; F17.210 Nicotine dependence, cigarettes, uncomplicated
CPT/HCPCS: 80053; 83690; 85007; 85025; 96361; 96374; 96375; 99284; J2405

== ENCOUNTER 2023-06-13 13:41 | Outpatient (CLI) | payer MEDICAID, SELFPAY ==
[2023-06-13 18:49] LABS: Basophils # 0.1 K/mm3 (0-0.2); Eosinophils # 0.2 K/mm3 (0.0-0.4); Eosinophils % 3.7 % (0.1-12.0); Hematocrit 45.3 % (37.0-47.0); Hemoglobin 14.1 g/dL (12.2-16.2); Lymphocytes # 2.4 K/mm3 (0.7-4.5); Lymphocytes % 42.8 % (10-50); Mean Corpuscular HGB Conc 31.1 g/dL (31.8-35.4); Mean Corpuscular Hemoglobin 30.3 pg (27.0-31.2); Mean Corpuscular Volume 97.6 fl (81-99); Mean Platelet Volume 8.9 fl (7.4-10.4); Monocytes # 0.4 K/mm3 (0.1-1.0); Monocytes % 6.7 % (1.7-9.3); Neutrophils # 2.5 K/mm3 (1.8-7.8); Neutrophils % 45.8 % (37.0-80.0); Platelet Count 143 K/mm3 (142-424); Red Blood Count 4.64 M/mm3 (4.20-5.40); Red Cell Distribution Width 15.9 % (11.5-17.5); White Blood Count 5.5 K/mm3 (4.8-10.8)
[2023-06-13 19:07] LABS: Hemoglobin A1C 6.3 % (4.0-6.0)
[2023-06-13 20:09] LABS: Alanine Aminotransferase 37 U/L (12-78); Albumin Level 3.5 g/dl (3.5-5.0); Albumin/Globulin Ratio 0.9 (1.1-1.8); Alkaline Phosphatase 158 U/L (38-126); Anion Gap 9.6 mEq/L (5-15); Aspartate Amino Transferase 63 U/L (14-36); Bilirubin,Total 0.7 mg/dl (0.2-1.3); Blood Urea Nitrogen 9 mg/dl (7-17); Calcium 9.2 mg/dl (8.4-10.2); Carbon Dioxide 27 mmol/L (22.0-30.0); Chloride 106 mmol/L (98-107); Chol/HDL Ratio 4.1 (1-3.5); Cholesterol 172 mg/dl (140-200); Estimated Glomerular Filt Rate 89 ml/min (>60); GFR (African American) 108 ML/MIN (>60); Globulin 3.9 g/dL (1.3-3.2); Glucose 87 mg/dl (74-100); HDL Cholesterol 42 mg/dl (40-60); Potassium 4.6 mmoL/L (3.5-5.1); Sodium 138 mmol/L (136-145); Total Protein,Serum 7.4 g/dl (6.3-8.2); Triglycerides 116 mg/dl (30-150); VLDL Cholesterol 23 mg/dL (0-40)
[2023-06-13 20:19] LABS: Direct LDL Cholesterol 100.03 mg/dL (100-129)
[2023-06-13 20:26] LABS: 25-OH Vitamin D, Total 59.8 ng/mL (30-100)
[2023-06-13 20:39] LABS: Thyroid Stimulating Hormone 2.33 uIU/mL (0.465-4.68)
== END 2023-06-13 23:59 | disposition home or self-care (01) ==
LOC: LAB.DROPOF 06-14 13:42
PROVIDERS: PCP Physician Assistant; Visit Provider Physician Assistant
DX: E11.65 Type 2 diabetes mellitus with hyperglycemia (principal); Z79.899 Other long term (current) drug therapy
CPT/HCPCS: 80053; 80061; 82306; 83036; 84443; 85025

== ENCOUNTER 2024-04-15 15:51 | Outpatient (CLI) | payer MEDICAID, SELFPAY ==
[2024-04-15 19:54] LABS: Basophils % 0.5 % (0.1-2.0); Eosinophils # 0.1 K/mm3 (0.0-0.4); Eosinophils % 1.9 % (0.1-12.0); Hemoglobin 13.8 g/dL (12.2-16.2); Lymphocytes # 2.1 K/mm3 (0.7-4.5); Lymphocytes % 49.2 % (10-50); Mean Corpuscular HGB Conc 32.9 g/dL (31.8-35.4); Mean Corpuscular Hemoglobin 29.2 pg (27.0-31.2); Mean Corpuscular Volume 88.8 fl (81-99); Mean Platelet Volume 10.4 fl (7.4-10.4); Monocytes # 0.2 K/mm3 (0.1-1.0); Monocytes % 3.8 % (1.7-9.3); Neutrophils # 1.9 K/mm3 (1.8-7.8); Neutrophils % 44.1 % (37.0-80.0); Platelet Count 117 K/mm3 (142-424); Red Blood Count 4.73 M/mm3 (4.20-5.40); Red Cell Distribution Width 14.1 % (11.5-17.5); White Blood Count 4.3 K/mm3 (4.8-10.8)
[2024-04-15 20:01] LABS: Creatinine,Urine Random 85 mg/dL (Not Estab.)
[2024-04-15 20:21] LABS: Alanine Aminotransferase 28 U/L (12-78); Albumin Level 3.2 g/dl (3.5-5.0); Albumin/Globulin Ratio 0.9 (1.1-1.8); Alkaline Phosphatase 122 U/L (38-126); Anion Gap 9.4 mEq/L (5-15); Aspartate Amino Transferase 37 U/L (14-36); Bilirubin,Total 0.4 mg/dl (0.2-1.3); Blood Urea Nitrogen 10 mg/dl (7-17); Calcium 8.8 mg/dl (8.4-10.2); Carbon Dioxide 25 mmol/L (22.0-30.0); Chloride 108 mmol/L (98-107); Chol/HDL Ratio 4.7 (1-3.5); Cholesterol 132 mg/dl (140-200); Estimated Glomerular Filt Rate 89 ml/min (>60); GFR (African American) 108 ML/MIN (>60); Globulin 3.7 g/dL (1.3-3.2); Glucose 111 mg/dl (74-100); HDL Cholesterol 28 mg/dl (40-60); Microalbumin < 6.000 mg/L (0-16.7); Potassium 4.4 mmoL/L (3.5-5.1); Sodium 138 mmol/L (136-145); Total Protein,Serum 6.9 g/dl (6.3-8.2); Triglycerides 76 mg/dl (30-150); VLDL Cholesterol 15 mg/dL (0-40)
[2024-04-15 20:32] LABS: Direct LDL Cholesterol 72.04 mg/dL (100-129)
[2024-04-15 20:37] LABS: 25-OH Vitamin D, Total 77.4 ng/mL (30-100)
[2024-04-15 20:52] LABS: Thyroid Stimulating Hormone 1.76 uIU/mL (0.465-4.68)
[2024-04-15 22:07] LABS: HIV Combo NEGATIVE (Negative)
[2024-04-15 22:13] LABS: Hepatitis C Ab Qual. W/ RFX NEGATIVE (Negative)
== END 2024-04-15 23:59 | disposition home or self-care (01) ==
LOC: LAB.DROPOF 04-16 15:52
PROVIDERS: PCP Nurse Practitioner Family; Visit Provider Nurse Practitioner Family
DX: E11.9 Type 2 diabetes mellitus without complications (principal); Z11.59 Encounter for screening for other viral diseases
CPT/HCPCS: 80053; 80061; 82043; 82306; 82570; 84443; 85025; 86803; 87389